=== PATIENT | female | born 1955 | race Caucasian/White ===

== ENCOUNTER 2016-10-22 09:55 | Emergency (ER) | payer OTHER ==
[2016-10-22] MEDS ORDERED: PREDNISONE 20 MG TABLET PO ONE (10:39)
[2016-10-22] MEDS ORDERED: ALBUTEROL SULFATE 0.083% NEB 2.5 MG/3 ML AMPUL NEB ONE (10:39)
[2016-10-22] MEDS ORDERED: IPRATROPIUM/ALBUTEROL 0.5-2.5 MG/3 ML AMPUL NEB ONE (10:39)
--- NOTE | 2016-10-22 10:40 | ER Document Report ---
ED Respiratory Problem - General Chief Complaint: Shortness Of Breath Stated Complaint: SHORTNESS OF BREATH Time Seen by Provider: 10/22/16 10:22 Mode of Arrival: Ambulatory Information source: Patient, [facility] Records Notes: This 61-year-old female patient reports one-week history of increasing shortness of breath with exertion some discomfort with deep breath, mostly clear productive cough. No fevers. She had similar episode in November last year where she is seen twice in the emergency room with bronchitis with bronchospasm. She used to be a heavy smoker, now only rarely smokes perhaps 1 cigarette weekly. She occasionally drinks alcohol. 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 TRAVEL OUTSIDE OF THE [place] IN LAST 30 DAYS: No - Related Data Allergies/Adverse Reactions: No Known Allergies Allergy (Verified 10/22/16 10:04) Past Medical History - General Information source: Patient, [facility] Records - Social History Smoking Status: Current Some Day Smoker Cigarette use (# per day): Yes - Patient reports smoking maybe 1 cigarette per week Chew tobacco use (# tins/day): No Smoking Education Provided: No Frequency of alcohol use: Occasional Drug Abuse: None Lives with: Family Family History: None, Reviewed & Not Pertinent Patient has suicidal ideation: No Patient has homicidal ideation: No - Past Medical History Cardiac Medical History: Reports: None Pulmonary Medical History: Reports: Hx Bronchitis - 2 ER visits for bronchitis with bronchospasm and suspected COPD in November Neurological Medical History: Reports: None Endocrine Medical History: Reports: None Renal/ Medical History: Reports: None GI Medical History: Reports: None Musculoskeltal Medical History: Reports None Psychiatric Medical History: Reports: None Surgical Hx: Negative Review of Systems - Review of Systems Constitutional: No symptoms reported EENT: No symptoms reported Cardiovascular: No symptoms reported Respiratory: See HPI, Cough, Short of breath, Sputum, Wheezing Gastrointestinal: No symptoms reported Genitourinary: No symptoms reported Female Genitourinary: Post menopausal Musculoskeletal: No symptoms reported Skin: No symptoms reported Hematologic/Lymphatic: No symptoms reported Neurological/Psychological: No symptoms reported Physical Exam - Vital signs Interpretation: Normal - General General appearance: Alert In distress: Mild - HEENT Head: Normocephalic, Atraumatic Eyes: Normal Pupils: PERRL Neck: Normal - Respiratory Respiratory status: Tachypnea Chest status: Pain with cough Breath sounds: Rhonchi, Wheezing - Diffuse tight inspiratory expiratory wheezes with some rhonchi on coughing - Cardiovascular Rhythm: Regular Heart sounds: Normal auscultation Murmur: No - Abdominal Inspection: Obese Bowel sounds: Normal Tenderness: Nontender - Back Back: Normal - Extremities General upper extremity: Normal inspection General lower extremity: Normal inspection - Neurological Neuro grossly intact: Yes - Psychological Associated symptoms: Normal affect, Normal mood - Skin Skin Temperature: Warm Skin Moisture: Dry Skin Color: Normal Course - Re-evaluation Re-evalutation: 10/22/16 12:49 Patient's breathing is much better at this time, wheezes or almost gone completely. Discharge - Discharge Clinical Impression: Acute bronchitis with bronchospasm Condition: Stable Disposition: HOME, SELF-CARE Additional Instructions: Bronchitis with Bronchospasm (Wheezing) You have bronchitis with bronchospasm (wheezing). Sometimes people develop wheezing with a chest cold. This occurs either because of an underlying tendency toward asthma or because the virus itself irritates the bronchial tubes. This irritation causes cough, shortness of breath, and wheezing. Emergency treatment of bronchospasm may include adrenaline shots or bronchodilator aerosol. You may feel lightheaded and have a rapid pulse for an hour or two. Rest and get plenty of fluids. At home, we'll treat you with a bronchodilator inhaler. Corticosteroids may be required for some patients. Until you recover, avoid chemical fumes, dusts, pollens, and exercising in very cold or dry air. If you smoke, stop now! Most cases of bronchitis get better without antibiotics. We prescribe antibiotics when we believe bacteria are damaging your airways, or if there's high risk the bronchitis will worsen into pneumonia. Increase your fluid intake. A cool mist humidifier may make your lungs more comfortable. An expectorant (cough medicine that loosens phlegm) can help. Repeated episodes of bronchitis and bronchospasm may result in lung damage -- for example, chronic bronchitis, recurrent pneumonias, or emphysema. If you develop a fever, increased wheezing, chest pain, or severe shortness of breath, you should contact the doctor immediately. START THE ZITHROMAX AND PREDNISONE TOMORROW. USE THE INHALER EVERY 4 HOURS FOR WHEEZING. DRINK PLENTY OF WATER. GET PLENTY OF REST. FOLLOW UP WITH A LOCAL MEDICAL DOCTOR IF NOT IMPROVING. RETURN TO THE EMERGENCY ROOM IF ANY NEW OR WORSENING SYMPTOMS. Prescriptions: Albuterol Sulfate [Proair HFA] 1 - 2 puff IH Q4 PRN #1 inhaler PRN Reason: Azithromycin [Zithromax 250 mg Tablet] 250 mg PO DAILY #4 tablet Prednisone [Deltasone 10 mg Tablet] 10 mg PO ASDIR PRN #21 tablet PRN Reason: Forms: Return to Work
[2016-10-22] MEDS ORDERED: AZITHROMYCIN 250 MG TABLET PO ONE (10:41)
[2016-10-22 13:11] VITALS: BP 215/87
== END 2016-10-22 13:08 | disposition home or self-care (01) ==
LOC: ER 09:55
DX: J20.9 Acute bronchitis, unspecified (principal); R06.02 Shortness of breath; R05 Cough; F17.210 Nicotine dependence, cigarettes, uncomplicated
CPT/HCPCS: 94640 ×2; 99284; J7512; J7620

== ENCOUNTER 2016-12-10 20:44 | Emergency (ER) | payer OTHER ==
[2016-12-10] MEDS ORDERED: ALBUTEROL SULFATE 0.083% NEB 2.5 MG/3 ML AMPUL NEB ONE (21:38)
--- NOTE | 2016-12-10 21:42 | ER Document Report ---
ED General - General Chief Complaint: Breathing Difficulty Stated Complaint: DIFFICULTY BREATHING Time Seen by Provider: 12/10/16 21:27 Notes: 61-year-old female patient. No past medical history. No medications. No surgeries. No recent long trips or travel. Does smoke on occasions. Complaining of shortness of breath over the last month which is getting worse. Worse when she lies flat. Also complaining of swelling of the left ankle. Mild pain. Denies any trauma. TRAVEL OUTSIDE OF THE [place] IN LAST 30 DAYS: No - Related Data Allergies/Adverse Reactions: No Known Allergies Allergy (Verified 10/22/16 10:04) Past Medical History - General Information source: Patient - Social History Smoking Status: Current Every Day Smoker Lives with: Alone Family History: None, Reviewed & Not Pertinent Patient has suicidal ideation: No Patient has homicidal ideation: No Pulmonary Medical History: Reports: Hx Bronchitis - 2 ER visits for bronchitis with bronchospasm and suspected COPD in November Renal/ Medical History: Denies: Hx Peritoneal Dialysis Review of Systems - Review of Systems Constitutional: No symptoms reported EENT: No symptoms reported Cardiovascular: No symptoms reported, Orthopnea, Edema Respiratory: No symptoms reported, Cough, Short of breath, Wheezing Gastrointestinal: No symptoms reported Genitourinary: No symptoms reported Female Genitourinary: No symptoms reported Musculoskeletal: No symptoms reported, Ankle swelling Skin: No symptoms reported Hematologic/Lymphatic: No symptoms reported Neurological/Psychological: No symptoms reported Physical Exam - Vital signs Vitals: Temp Pulse Resp BP Pulse Ox 98.7 F 89 20 207/111 H 95 12/10/16 20:52 12/10/16 20:52 12/10/16 20:52 12/10/16 20:52 12/10/16 20:52 Interpretation: Normal - General General appearance: Appears well, Alert - HEENT Head: Normocephalic, Atraumatic Eyes: Normal Pupils: PERRL - Respiratory Respiratory status: No respiratory distress Chest status: Nontender Breath sounds: Normal, Decreased air movement, Wheezing Chest palpation: Normal - Cardiovascular Rhythm: Regular Heart sounds: Normal auscultation Murmur: No - Abdominal Inspection: Normal Distension: No distension Bowel sounds: Normal Tenderness: Nontender Organomegaly: No organomegaly - Back Back: Normal, Nontender - Extremities General upper extremity: Normal inspection, Nontender, Normal color, Normal ROM , Normal temperature General lower extremity: Normal inspection, Nontender, Edema - Trace edema noted to the left ankle mostly on the lateral aspect, Normal color, Normal ROM, Normal temperature, Normal weight bearing. No: Zoe's sign - Neurological Neuro grossly intact: Yes Cognition: Normal Orientation: AAOx4 Zo Coma Scale Eye Opening: Spontaneous [place] Coma Scale Verbal: Oriented Zo Coma Scale Motor: Obeys Commands Zo Coma Scale Total: 15 Speech: Normal Motor strength normal: LUE, RUE, LLE, RLE Sensory: Normal - Psychological Associated symptoms: Normal affect, Normal mood - Skin Skin Temperature: Warm Skin Moisture: Dry Skin Color: Normal Course - Re-evaluation Re-evalutation: 12/10/16 21:59 We will get cardiac workup. Will also order d-dimer to assess for possible DVT which could be causing the respiratory issues if this is a pulmonary embolism from that. It is interesting the patient denies any trauma and has unilateral leg swelling. Will start with a breathing treatment at this time as well. Unlikely this represents a bronchitis but would like to check the other concerning things such as pulmonary embolism and cardiac issues. 12/10/16 23:06 Chest X-Ray 12/10/16 21:38 IMPRESSION: NO SIGNIFICANT RADIOGRAPHIC FINDING IN THE CHEST. Ankle X-Ray 12/10/16 21:40 IMPRESSION: NO SIGNIFICANT FINDING IN THE LEFT ANKLE. NO EXPLANATION FOR PAIN. 12/10/16 23:06 There is no obvious issues with her heart at this time. Negative troponin. Negative BNP. Chest x-ray unremarkable. Wheezing is improved after breathing treatment. Patient is a smoker. Will give her treatment as a COPD exacerbation with breathing treatments, steroids, antibiotics. Encourage close follow-up. - Vital Signs Vital signs: Temp Pulse Resp BP Pulse Ox 98.7 F 89 13 207/111 H 95 12/10/16 20:52 12/10/16 20:52 12/10/16 21:28 12/10/16 20:52 12/10/16 20:52 - Laboratory Result Diagrams: 12/10/16 22:00 12/10/16 22:00 Laboratory results interpreted by me: 12/10/16 22:00 Sodium 145.8 H Alkaline Phosphatase 138 H Total Protein 8.3 H - Diagnostic Test Radiology reviewed: Image reviewed - EKG Interpretation by Me EKG shows normal: Sinus rhythm, [place], Intervals, QRS Complexes, ST-T Waves - No significant change from prior Discharge - Discharge Clinical Impression: Bronchitis Condition: Good Disposition: HOME, SELF-CARE Instructions: Bronchitis ([facility]), Bronchodilators ([facility]) Additional Instructions: If you develop chest pain, worsening shortness of breath, worsening concerns please return immediately. Please follow-up with your primary care provider of your choice Prescriptions: Azithromycin 250 mg PO DAILY 7 Days #7 tablet Ipratropium/Albuterol Sulfate [Combivent Inhaler] 14.7 gm IH BID 30 Days #1 aer.[email or web address] Prednisone 60 mg PO DAILY 5 Days #15 tablet Referrals: ELIF GAR MD [ACTIVE STAFF] - Follow up as needed
[2016-12-10 22:17] LABS: ABSOLUTE BASOPHILS # (AUTO) 0.1 10^3/uL (0.0-0.2); ABSOLUTE EOSINOPHILS # (AUTO) 0.3 10^3/uL (0.0-0.6); ABSOLUTE LYMPHOCYTES (AUTO) 1.8 10^3/uL (0.5-4.7); ABSOLUTE MONOCYTES (AUTO) 0.6 10^3/uL (0.1-1.4); ABSOLUTE NEUT (AUTO) 5.7 10^3/uL (1.7-8.2); BASOPHILS % (AUTO) 0.7 % (0-2); EOSINOPHILS % (AUTO) 3.9 % (0-6); HEMATOCRIT 44.3 % (36.0-47.0); HEMOGLOBIN 14.9 g/dL (12.0-15.5); HGB HCT DIFFERENCE 0.4; LYMPHOCYTES % (AUTO) 21.3 % (13-45); MEAN CORPUSCULAR HEMOGLOBIN 29.6 pg (27.0-33.4); MEAN CORPUSCULAR HGB CONC 33.7 g/dL (32.0-36.0); MEAN CORPUSCULAR VOLUME 88 fl (80-97); MONOCYTES % (AUTO) 6.6 % (3-13); RED BLOOD COUNT 5.03 10^6/uL (3.72-5.28); RED CELL DISTRIBUTION WIDTH 13.8 % (11.5-14.0); SEGMENTED NEUTROPHILS % (AUTO) 67.5 % (42-78); WHITE BLOOD COUNT 8.4 10^3/uL (4.0-10.5)
--- NOTE | 2016-12-10 22:32 | RADIOLOGY REPORT (SQ) ---
EXAM DESCRIPTION: CHEST PA/LAT COMPLETED DATE/TIME: 12/10/2016 10:22 pm REASON FOR STUDY: sob COMPARISON: 12/07/2015. EXAM PARAMETERS: NUMBER OF VIEWS: two views TECHNIQUE: Digital Frontal and Lateral radiographic views of the chest acquired. RADIATION DOSE: NA LIMITATIONS: none FINDINGS: LUNGS AND PLEURA: No opacities, masses or pneumothorax. No pleural effusion. MEDIASTINUM AND HILAR STRUCTURES: No masses or contour abnormalities. HEART AND VASCULAR STRUCTURES: Heart normal size. No evidence for failure. BONES: No acute findings. HARDWARE: None in the chest. OTHER: No other significant finding. IMPRESSION: NO SIGNIFICANT RADIOGRAPHIC FINDING IN THE CHEST. TECHNICAL DOCUMENTATION: JOB ID: [id number] [employer]- All Rights Reserved
--- NOTE | 2016-12-10 22:35 | RADIOLOGY REPORT (SQ) ---
EXAM DESCRIPTION: ANKLE LEFT COMPLETE COMPLETED DATE/TIME: 12/10/2016 10:22 pm REASON FOR STUDY: swelling COMPARISON: None. NUMBER OF VIEWS: Three views. TECHNIQUE: AP, lateral, and oblique without weight bearing radiographic images acquired of the left ankle. LIMITATIONS: None. FINDINGS: MINERALIZATION: Normal. BONES: No acute fracture or dislocation. No worrisome bone lesions. No significant osteophytes. JOINTS: No effusions. SOFT TISSUES: No soft tissue swelling. No foreign body. OTHER: No other significant finding. IMPRESSION: NO SIGNIFICANT FINDING IN THE LEFT ANKLE. NO EXPLANATION FOR PAIN. TECHNICAL DOCUMENTATION: JOB ID: [id number] [employer]- All Rights Reserved
[2016-12-10 22:45] LABS: ALANINE AMINOTRANSFERASE 23 U/L (9-52); ALBUMIN 4.5 g/dL (3.5-5.0); ALKALINE PHOSPHATASE 138 U/L (38-126); ANION GAP 14 (5-19); ASPARTATE AMINO TRANSFERASE 18 U/L (14-36); BILIRUBIN,DIRECT 0.3 mg/dL (0.0-0.4); BILIRUBIN,TOTAL 0.5 mg/dL (0.2-1.3); BLOOD UREA NITROGEN 13 mg/dL (7-20); CARBON DIOXIDE 28 mmol/L (22-30); CHLORIDE 104 mmol/L (98-107); CREATINE KINASE 37 U/L (30-135); CREATININE RESULT 0.84 mg/dL (0.52-1.25); GLUCOSE 108 mg/dL (75-110); POTASSIUM 4.3 mmol/L (3.6-5.0); SODIUM 145.8 mmol/L (137-145); TOTAL PROTEIN 8.3 g/dL (6.3-8.2)
[2016-12-10 22:57] LABS: CREATINE KINASE MB 0.86 ng/mL (<4.55); TROPONIN I < 0.012 ng/mL
[2016-12-10] MEDS ORDERED: IPRATROPIUM/ALBUTEROL 0.5-2.5 MG/3 ML AMPUL NEB ONE (23:05)
[2016-12-10] MEDS ORDERED: AZITHROMYCIN 250 MG TABLET PO ONE (23:05)
[2016-12-10] MEDS ORDERED: PREDNISONE 20 MG TABLET PO ONE (23:05)
[2016-12-10] MEDS ORDERED: ALBUTEROL SULFATE HFA (90 MCG/PUFF) 200 PUFF/8.5 GM MDI IH ONE (23:24)
[2016-12-10 23:49] VITALS: BP 168/84
--- NOTE | 2016-12-11 10:39 | EKG REPORT ---
SEVERITY:- ABNORMAL ECG - SINUS RHYTHM LVH BORDERLINE PROLONGED QT INTERVAL : Confirmed by: Duran Christianson 11-Dec-2016 10:38:49
== END 2016-12-10 23:20 | disposition home or self-care (01) ==
LOC: ER 20:44
DX: J40 Bronchitis, not specified as acute or chronic (principal); F17.200 Nicotine dependence, unspecified, uncomplicated
CPT/HCPCS: 93005; 94640; 99285; 36415; 82553; 82550; 85025; 80053; 84484; 85379; 83880; 73610; 71020; 93010; J7512; J3490

== ENCOUNTER 2016-12-30 17:38 | Inpatient (IN) | payer OTHER ==
[2016-12-30] MEDS ORDERED: IPRATROPIUM/ALBUTEROL 0.5-2.5 MG/3 ML AMPUL NEB ONE ×2 (17:51→17:57)
[2016-12-30] MEDS ORDERED: ALBUTEROL SULFATE 0.083% NEB 2.5 MG/3 ML AMPUL NEB ONE ×2 (17:52→17:57)
[2016-12-30] MEDS ORDERED: MAGNESIUM SULFATE/D5W 2 GM/200 ML RTUPB IV ONE (17:52)
[2016-12-30] MEDS ORDERED: MAGNESIUM SULFATE/D5W 1 GM/100 ML RTUPB IV SCH (18:00)
[2016-12-30 18:03] LABS: ABSOLUTE EOSINOPHILS # (AUTO) 0.1 10^3/uL (0.0-0.6); ABSOLUTE NEUT (AUTO) 13.9 10^3/uL (1.7-8.2); BASOPHILS % (AUTO) 0.3 % (0-2); EOSINOPHILS % (AUTO) 0.6 % (0-6); HEMATOCRIT 41.6 % (36.0-47.0); HEMOGLOBIN 13.8 g/dL (12.0-15.5); HGB HCT DIFFERENCE -0.2; LYMPHOCYTES % (AUTO) 6.2 % (13-45); MEAN CORPUSCULAR HEMOGLOBIN 29.2 pg (27.0-33.4); MEAN CORPUSCULAR HGB CONC 33.2 g/dL (32.0-36.0); MEAN CORPUSCULAR VOLUME 88 fl (80-97); MONOCYTES % (AUTO) 6.5 % (3-13); RED BLOOD COUNT 4.72 10^6/uL (3.72-5.28); RED CELL DISTRIBUTION WIDTH 13.8 % (11.5-14.0); SEGMENTED NEUTROPHILS % (AUTO) 86.4 % (42-78); WHITE BLOOD COUNT 16.1 10^3/uL (4.0-10.5)
[2016-12-30 18:28] LABS: ALANINE AMINOTRANSFERASE 21 U/L (9-52); ALBUMIN 4.4 g/dL (3.5-5.0); ALKALINE PHOSPHATASE 136 U/L (38-126); ANION GAP 12 (5-19); ASPARTATE AMINO TRANSFERASE 20 U/L (14-36); BILIRUBIN,DIRECT 0.4 mg/dL (0.0-0.4); BILIRUBIN,TOTAL 0.4 mg/dL (0.2-1.3); BLOOD UREA NITROGEN 14 mg/dL (7-20); CARBON DIOXIDE 31 mmol/L (22-30); CHLORIDE 103 mmol/L (98-107); CREATINE KINASE 90 U/L (30-135); CREATININE RESULT 0.74 mg/dL (0.52-1.25); GLUCOSE 135 mg/dL (75-110); POTASSIUM 3.5 mmol/L (3.6-5.0); SODIUM 145.7 mmol/L (137-145); TOTAL PROTEIN 8.9 g/dL (6.3-8.2)
--- NOTE | 2016-12-30 18:29 | ER Document Report ---
ED Respiratory Problem - General Chief Complaint: Breathing Difficulty Stated Complaint: SHORTNESS OF BREATH Time Seen by Provider: 12/30/16 17:46 Notes: The patient is a 61-year-old female, past medical history frequent bronchitis, prior heavy smoker, presents with 1 day of increased wheezing and shortness of breath. She finished a course of steroids and antibiotics last week with some improvement of her wheezing and shortness of breath. She began to have the wheezing this morning and used her albuterol inhaler about 10 times with only mild relief of her symptoms. EMS was called and patient was placed on CPAP machine due to tripoding and diffuse wheezing. She was given 2 duo nebs and 125 mg Solu-Medrol prior to arrival and she feels better. Patient is also having productive cough today. Patient denies chest pain, fevers, leg swelling , nausea, vomiting, rash, hemoptysis, recent travel, back pain, abdominal pain or headache. TRAVEL OUTSIDE OF THE [place] IN LAST 30 DAYS: No - Related Data Allergies/Adverse Reactions: No Known Allergies Allergy (Verified 12/30/16 18:09) Home Medications: Current Home Medications No Home Medications 12/30/16 [History] Past Medical History - General Information source: Patient - Social History Smoking Status: Former Smoker Family History: None, Reviewed & Not Pertinent Pulmonary Medical History: Reports: Hx Bronchitis - 2 ER visits for bronchitis with bronchospasm and suspected COPD in November Renal/ Medical History: Denies: Hx Peritoneal Dialysis Review of Systems - Review of Systems Notes: REVIEW OF SYSTEMS: CONSTITUTIONAL: -fevers, -chills EENT: -eye pain, -difficulty swallowing, -nasal congestion CARDIOVASCULAR: -chest pain, -syncope. RESPIRATORY: +cough, +SOB GASTROINTESTINAL: -abdominal pain, - nausea, -vomiting, -diarrhea GENITOURINARY: -dysuria, -hematuria MUSCULOSKELETAL: -back pain, -neck pain SKIN: -rash or skin lesions. HEMATOLOGIC: -easy bruising or bleeding. LYMPHATIC: -swollen, enlarged glands. NEUROLOGICAL: -altered mental status or loss of consciousness, -headache, - neurologic symptoms PSYCHIATRIC: -anxiety, -depression. ALL OTHER SYSTEMS REVIEWED AND NEGATIVE. Physical Exam - Vital signs Vitals: Resp Pulse Ox 28 H 95 12/30/16 17:45 12/30/16 17:45 - Notes Notes: PHYSICAL EXAMINATION: GENERAL: In moderate respiratory distress. HEAD: Atraumatic, normocephalic. EYES: Pupils equal round and reactive to light, extraocular movements intact, sclera anicteric, conjunctiva are normal. ENT: nares patent, oropharynx clear without exudates. Moist mucous membranes. NECK: Normal range of motion, supple without lymphadenopathy LUNGS: Tachypneic, diffuse auditory wheezing, tripoding, using accessory muscles. HEART: Regular rhythm. ABDOMEN: Soft, nontender, normoactive bowel sounds. No guarding, no rebound. No masses appreciated. EXTREMITIES: Normal range of motion, no pitting or edema. No cyanosis. NEUROLOGICAL: Cranial nerves grossly intact. Normal speech, normal gait. Normal sensory and motor exams. PSYCH: Normal mood, normal affect. SKIN: Warm, Dry, normal turgor, no rashes or lesions noted. Course - Re-evaluation Re-evalutation: Patient seen immediately on arrival to the emergency room due to respiratory distress. She was transitioned to BiPAP and further beta agonists and magnesium were provided to patient due to the auditory wheezing and respiratory distress. She is resting comfortably on BiPAP machine and after her medications. We will continue to monitor. Patient continues to rest comfortably on BiPAP. Spoke to Dr. Banks and will admit patient as inpatient to IMCU. - Vital Signs Vital signs: Temp Pulse Resp BP Pulse Ox 98.0 F 18 167/115 H 92 12/30/16 17:54 12/30/16 20:01 12/30/16 20:01 12/30/16 20:01 - Laboratory Result Diagrams: 12/30/16 17:49 12/30/16 17:49 Laboratory results interpreted by me: 12/30/16 12/30/16 12/30/16 17:49 17:49 17:49 WBC 16.1 H Seg Neutrophils % 86.4 H Lymphocytes % 6.2 L Absolute Neutrophils 13.9 H VBG pH VBG pCO2 Sodium 145.7 H Potassium 3.5 L Carbon Dioxide 31 H Glucose 135 H Lactic Acid 2.3 H Alkaline Phosphatase 136 H Total Protein 8.9 H 12/30/16 17:49 WBC Seg Neutrophils % Lymphocytes % Absolute Neutrophils VBG pH 7.29 L VBG pCO2 63.8 H Sodium Potassium Carbon Dioxide Glucose Lactic Acid Alkaline Phosphatase Total Protein - Diagnostic Test Radiology reviewed: Image reviewed, Reports reviewed Radiology results interpreted by me: CXR: NAD - EKG Interpretation by Me EKG shows normal: Sinus rhythm, [place], Intervals, QRS Complexes, ST-T Waves Rate: Tachycardia Critical Care Note - Critical Care Note Total time excluding time spent on procedures (mins): 35 Discharge - Discharge Clinical Impression: COPD with exacerbation Condition: Stable Disposition: ADMITTED INPATIENT Admitting Provider: Marlyist [facility] Unit Admitted: [facility]
[2016-12-30 18:42] LABS: TROPONIN I 0.035 ng/mL
--- NOTE | 2016-12-30 18:48 | RADIOLOGY REPORT (SQ) ---
EXAM DESCRIPTION: CHEST SINGLE VIEW COMPLETED DATE/TIME: 12/30/2016 6:38 pm REASON FOR STUDY: SOB COMPARISON: 12/10/2016 EXAM PARAMETERS: NUMBER OF VIEWS: One view. TECHNIQUE: Single frontal radiographic view of the chest acquired. RADIATION DOSE: NA LIMITATIONS: None. FINDINGS: LUNGS AND PLEURA: No opacities, masses or pneumothorax. No pleural effusion. MEDIASTINUM AND HILAR STRUCTURES: No masses. Contour normal. HEART AND VASCULAR STRUCTURES: Heart normal in size. Normal vasculature. BONES: No acute findings. HARDWARE: None in the chest. OTHER: No other significant finding. IMPRESSION: NO ACUTE RADIOGRAPHIC FINDING IN THE CHEST. TECHNICAL DOCUMENTATION: JOB ID: [id number] [employer]- All Rights Reserved
[2016-12-30 20:29] LABS: VENOUS BLOOD BASE EXCESS 1.5 mmol/L; VENOUS BLOOD HCO3 29.9 mmol/L (20-32); VENOUS BLOOD PCO2 63.8 mmHg (35-63); VENOUS BLOOD PH 7.29 (7.30-7.42)
[2016-12-30] MEDS ORDERED: LEVALBUTEROL HCL NEB 1.25 MG/3 ML AMPUL NEB PRN (21:22)
[2016-12-30] MEDS ORDERED: HYDRALAZINE HCL INJ/PF 20 MG/1 ML SDV IV PRN (21:23)
[2016-12-30] MEDS ORDERED: ACETAMINOPHEN 325 MG TABLET PO PRN (21:24)
[2016-12-30] MEDS ORDERED: GUAIFENESIN SYRP 200 MG/10 ML UDC PO PRN (21:42)
[2016-12-30 22:38] LABS: VENOUS BLOOD HCO3 29.3 mmol/L (20-32); VENOUS BLOOD PCO2 46.4 mmHg (35-63); VENOUS BLOOD PH 7.42 (7.30-7.42)
[2016-12-30] MEDS: NORMAL SALINE 1000 ML 1,000 ML IV PRN (22:50)
[2016-12-30] MEDS: CEFTRIAXONE 1 GM/D5W RTU 1 GM/50 ML RTUPB IV SCH (22:50)
[2016-12-30] MEDS: AZITHROMYCIN 250 MG TABLET PO SCH (22:50)
[2016-12-30] MEDS: GUAIFENESIN 600 MG TABLET.SA PO SCH (22:50)
--- NOTE | 2016-12-31 00:10 | EKG REPORT ---
SEVERITY:- BORDERLINE ECG - SINUS RHYTHM BORDERLINE PROLONGED QT INTERVAL : Confirmed by: Duran Christianson 31-Dec-2016 00:10:05
--- NOTE | 2016-12-31 00:13 | EKG REPORT ---
SEVERITY:- BORDERLINE ECG - SINUS TACHYCARDIA VENTRICULAR PREMATURE COMPLEX LVH : Confirmed by: Duran Christianson 31-Dec-2016 00:12:22
[2016-12-31] MEDS ORDERED: INFLUENZA ADLT QUAD (36MOS+) 2017-18 VAC 0.5 ML SYR IM PRN (00:35)
[2016-12-31] MEDS ORDERED: ENOXAPARIN SODIUM INJ 40 MG/0.4 ML DISP.SYRIN SUBCUT ONE (01:00)
[2016-12-31] MEDS ORDERED: ASPIRIN 81 MG TABLET, CHEWABLE PO ONE (01:00)
[2016-12-31] MEDS: METHYLPREDNISOLONE INJ 125 MG/2 ML SDV IV SCH ×5 (01:08→23:59)
[2016-12-31] MEDS ORDERED: POTASSIUM CHLORIDE 10 MEQ TABLET.SA PO ONE (01:22)
[2016-12-31 01:31] LABS: VENOUS BLOOD BASE EXCESS 3.7 mmol/L; VENOUS BLOOD HCO3 31.2 mmol/L (20-32); VENOUS BLOOD PCO2 59.8 mmHg (35-63); VENOUS BLOOD PH 7.34 (7.30-7.42)
[2016-12-31] MEDS ORDERED: ATORVASTATIN CALCIUM 40 MG TABLET PO ONE (01:41)
--- NOTE | 2016-12-31 01:43 | PDOC H&P ---
History of Present Illness Admission Date/PCP: 12/30/16 21:19 No PCP History of Present Illness: ROMÁN LOMAS is a 61 year old female with no past medical history presents to the emergency department with shortness of breath. Patient reports approximately 4 days ago she developed a sinus drip but then began giving her a sore throat. She reports for that she used a home remedy of eating pickles. She reports that over the last 36 hours she has had increasing shortness of breath, lower extremity edema, orthopnea, dyspnea on exertion, fevers, subjective chills, and sputum productive of white clear sputum. She denies any chest pain during this time. Patient reports has been almost 5 years since she has been to the doctor. Patient however has been seen in the emergency department October or November and now December for shortness of breath. Most recently, patient was seen on 12/10/2016 patient was given prednisone, azithromycin, and Combivent inhaler. Patient would have completed steroids on 12/16/16. Patient does continue to smoke about 5 cigarettes a day on occasion. She reports that she quit smoking the bulk of this approximately a year ago. Currently, patient has received Solu-Medrol, magnesium sulfate, and currently requiring BiPAP. Patient was found to be hypoxic on presentation with an oxygen saturation in the 80s. She is referred to the hospitalist service for COPD exacerbation and acute hypoxemic respiratory failure. Past Medical History Pulmonary Medical History: Reports: Bronchitis - 2 ER visits for bronchitis with bronchospasm and suspected COPD in November, Chronic Obstructive Pulmonary Disease (COPD) Past Surgical History Past Surgical History: Reports: None Social History Smoking Status: Current Some Day Smoker Cigarettes Packs Per Day: 0.2 Last Time Smoked: 1 yr ago Frequency of Alcohol Use: None Hx Recreational Drug Use: No Hx Prescription Drug Abuse: No - Advance Directive Resuscitation Status: Full Code Surrogate healthcare decision maker:: Dhruv Lomas, edie Family History Family History: None Family History: Father of old age, mother after hip surgery Parental Family History Reviewed: Yes Children Family History Reviewed: Yes Sibling(s) Family History Reviewed.: Yes Medication/Allergy Home Medications: No Home Medications 12/30/16 Allergies/Adverse Reactions: No Known Allergies Allergy (Verified 12/30/16 18:09) Review of Systems Constitutional: PRESENT: chills, fever(s). ABSENT: headache(s), weight gain, weight loss Eyes: ABSENT: visual disturbances Ears: ABSENT: hearing changes Cardiovascular: PRESENT: dyspnea on exertion, edema - Left ankle, orthropnea. ABSENT: chest pain, palpitations Respiratory: PRESENT: cough, dyspnea, sputum. ABSENT: hemoptysis Gastrointestinal: ABSENT: abdominal pain, constipation, diarrhea, hematemesis, hematochezia, melena, nausea, vomiting Genitourinary: ABSENT: dysuria, hematuria Musculoskeletal: ABSENT: joint swelling Integumentary: ABSENT: rash, wounds Neurological: ABSENT: abnormal gait, abnormal speech, confusion, dizziness, focal weakness, syncope Psychiatric: ABSENT: anxiety, depression, homidical ideation, suicidal ideation Endocrine: ABSENT: cold intolerance, heat intolerance, polydipsia, polyuria Hematologic/Lymphatic: ABSENT: easy bleeding, easy bruising Physical Exam Vital Signs: Temp Pulse Resp BP Pulse Ox 97.9 F 85 28 H 150/79 H 94 12/31/16 00:10 12/31/16 00:10 12/31/16 00:10 12/31/16 00:10 12/31/16 00:33 General appearance: PRESENT: obese, well-developed, well-nourished, other - Moderate distress Head exam: PRESENT: atraumatic, normocephalic Eye exam: PRESENT: conjunctiva pink, EOMI, PERRLA. ABSENT: scleral icterus Ear exam: PRESENT: normal external ear exam Mouth exam: PRESENT: dry mucosa, tongue midline Neck exam: ABSENT: JVD, lymphadenopathy, thyromegaly, tracheal deviation Respiratory exam: PRESENT: clear to auscultation marcio, prolonged expiratory phas , symmetrical, tachypnea, unlabored, wheezes. ABSENT: accessory muscle use, crackles, rales, retraction, rhonchi Cardiovascular exam: PRESENT: RRR, +S1, +S2, tachycardia. ABSENT: diastolic murmur, gallop, rubs, systolic murmur Pulses: PRESENT: normal dorsalis pedis pul Vascular exam: PRESENT: normal capillary refill GI/Abdominal exam: PRESENT: normal bowel sounds, soft. ABSENT: distended, firm , guarding, mass, Chadwick's sign, organolmegaly, rebound, rigid, tenderness Rectal exam: PRESENT: deferred Extremities exam: PRESENT: full ROM. ABSENT: calf tenderness, clubbing, pedal edema Neurological exam: PRESENT: alert, awake, oriented to person, oriented to place , oriented to time, oriented to situation, CN II-XII grossly intact. ABSENT: motor sensory deficit Psychiatric exam: PRESENT: appropriate affect, normal mood. ABSENT: homicidal ideation, suicidal ideation Skin exam: PRESENT: dry, intact, warm. ABSENT: cyanosis, rash Results Laboratory Results: 12/30/16 12/30/16 22:22 23:58 VBG pH 7.42 VBG pCO2 46.4 VBG HCO3 29.3 VBG Base Excess 4.0 Lactic Acid 1.9 12/30/16 23:58 Troponin I 0.499 12/10/16 12/30/16 12/30/16 22:00 17:49 17:49 WBC 16.1 H Hgb 13.8 Hct 41.6 Plt Count 277 Seg Neutrophils % 86.4 H D-Dimer < 0.27 VBG pH VBG pCO2 VBG HCO3 Sodium 145.7 H Potassium 3.5 L Chloride 103 Carbon Dioxide 31 H Anion Gap 12 BUN 14 Creatinine 0.74 Glucose 135 H Calcium 10.0 Total Bilirubin 0.4 Direct Bilirubin 0.4 AST 20 ALT 21 Alkaline Phosphatase 136 H Creatine Kinase 90 Troponin I NT-Pro-B Natriuret Pep Total Protein 8.9 H Albumin 4.4 12/30/16 12/30/16 17:49 17:49 WBC Hgb Hct Plt Count Seg Neutrophils % D-Dimer VBG pH 7.29 L VBG pCO2 63.8 H VBG HCO3 29.9 Sodium Potassium Chloride Carbon Dioxide Anion Gap BUN Creatinine Glucose Calcium Total Bilirubin Direct Bilirubin AST ALT Alkaline Phosphatase Creatine Kinase Troponin I 0.035 NT-Pro-B Natriuret Pep 324 Total Protein Albumin 12/30/16 12/30/16 20:25 23:58 Troponin I 0.288 0.499 Impressions: Chest X-Ray 12/30/16 17:55 IMPRESSION: NO ACUTE RADIOGRAPHIC FINDING IN THE CHEST. Status: Imported from PACS Assessment & Plan - Diagnosis (1) COPD with exacerbation Is this a current diagnosis for this admission?: Yes Plan: Patient with acute COPD exacerbation. Placed on Solu-Medrol 125 IV q. 6, scheduled nebulized treatments, as needed Xopenex, and continue BiPAP. Obtain sputum culture with concerns for possible pneumonia in light of reported fevers , chill, and sputum production. Patient also has elevated white count with left shift. Again, her steroid should have been already used by this time. (2) Acute hypoxemic respiratory failure Is this a current diagnosis for this admission?: Yes Plan: Continue BiPAP secondary to underlying COPD exacerbation (3) Hypertension Qualifiers: Hypertension type: unspecified Qualified Code(s): I10 - Essential (primary ) hypertension Is this a current diagnosis for this admission?: Yes Plan: Place patient on lisinopril and metoprolol. (4) Elevated troponin Is this a current diagnosis for this admission?: Yes Plan: Feel this is likely secondary to patient's hypoxemia. Her lactate was elevated , and she was hypoxic to the 80s when EMS arrived. Have ordered cardiology consultation, echocardiogram, and continue to plot out her troponins. EKG reveals no changes. No ST segment depression or elevation. It does reveal LVH however. Place patient on aspirin, lisinopril, metoprolol, and Lipitor. Oxygen. (5) Obesity (BMI 30.0-34.9) Is this a current diagnosis for this admission?: Yes Plan: Encourage weight loss and follow-up with her primary care physician - Time Time Spent: 30 to 50 Minutes Medications reviewed and adjusted accordingly: Yes Anticipated discharge: Home Within: Other - Upon improvement of symptomatology - Inpatient Certification Based on my medical assessment, after consideration of the patient's comorbidities, presenting symptoms, or acuity I expect that the services needed warrant INPATIENT care.: Yes I certify that my determination is in accordance with my understanding of Medicare's requirements for reasonable and necessary INPATIENT services [42 CFR 412.3e].: Yes Medical Necessity: Need For IV Fluids, Need For Continuous Telemetry Monitoring , Need for Nebulizer Therapy and Monitoring of Response, Need for IV Antibiotics 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
[2016-12-31] MEDS ORDERED: METOPROLOL SUCCINATE 25 MG TAB.SR.24H PO ONE (01:45)
[2016-12-31] MEDS ORDERED: LISINOPRIL 10 MG TABLET PO ONE (01:45)
[2016-12-31] MEDS: IPRATROPIUM/ALBUTEROL 0.5-2.5 MG/3 ML AMPUL NEB SCH ×4 (02:23→19:59)
[2016-12-31 06:55] LABS: HEMOGLOBIN 13.2 g/dL (12.0-15.5); HGB HCT DIFFERENCE 0.6; MEAN CORPUSCULAR HEMOGLOBIN 29.9 pg (27.0-33.4); MEAN CORPUSCULAR HGB CONC 33.7 g/dL (32.0-36.0); MEAN CORPUSCULAR VOLUME 89 fl (80-97); RED BLOOD COUNT 4.41 10^6/uL (3.72-5.28); RED CELL DISTRIBUTION WIDTH 13.9 % (11.5-14.0); WHITE BLOOD COUNT 10.9 10^3/uL (4.0-10.5)
[2016-12-31 07:00] LABS: ANION GAP 13 (5-19); BLOOD UREA NITROGEN 17 mg/dL (7-20); CALCIUM 9.6 mg/dL (8.4-10.2); CARBON DIOXIDE 29 mmol/L (22-30); CHLORIDE 105 mmol/L (98-107); CREATININE RESULT 0.63 mg/dL (0.52-1.25); GLUCOSE 146 mg/dL (75-110); MAGNESIUM 2.3 mg/dL (1.6-2.3); POTASSIUM 4.2 mmol/L (3.6-5.0); SODIUM 146.8 mmol/L (137-145)
[2016-12-31 07:06] LABS: APPEARANCE,URINE SLIGHTLY-CLOUDY; BILIRUBIN,URINE NEGATIVE (NEGATIVE); GLUCOSE, URINE NEGATIVE (NEGATIVE); KETONES,URINE NEGATIVE (NEGATIVE); LEUKOCYTE ESTERASE,URINE NEGATIVE (NEGATIVE); NITRITE,URINE NEGATIVE (NEGATIVE); PROTEIN,URINE 30 mg/dL (NEGATIVE); URINE SPECIFIC GRAVITY 1.026; UROBILINOGEN,URINE NEGATIVE mg/dL (<2.0)
[2016-12-31 07:23] LABS: BASOPHILS % (MANUAL) 1 % (0-2); EOSINOPHILS % (MANUAL) 0 % (0-6); HYPOCHROMASIA SLIGHT; LYMPHOCYTES % (MANUAL) 2 % (13-45); PLATELET CLUMPS PRESENT; TOTAL CELLS COUNTED 100
[2016-12-31] MEDS: TIOTROPIUM BROMIDE DPI 5 CAP/KIT (18 MCG/CAP) IH SCH (09:46)
[2016-12-31] MEDS: FLUTICASONE NASAL SPRAY 50 MCG/SPRY 120 SPRAY/16 GM NASL SCH (09:46)
[2016-12-31] MEDS: GUAIFENESIN 600 MG TABLET.SA PO SCH ×2 (09:47→21:54)
[2016-12-31] MEDS: ASPIRIN 325 MG TABLET, ENT COATED PO SCH (09:48)
[2016-12-31] MEDS: LISINOPRIL 10 MG TABLET PO SCH ×2 (09:49→21:55)
[2016-12-31] MEDS: METOPROLOL SUCCINATE 25 MG TAB.SR.24H PO SCH ×2 (09:49→21:53)
[2016-12-31] MEDS ORDERED: AZITHROMYCIN 500 MG in DEXTROSE 5%-WATER 250 ML IV SCH (10:00)
[2016-12-31] MEDS: NORMAL SALINE 1000 ML 1,000 ML IV PRN ×2 (11:36→18:54)
--- NOTE | 2016-12-31 11:42 | RADIOLOGY REPORT (SQ) ---
EXAM DESCRIPTION: CTA CHEST COMPLETED DATE/TIME: 12/31/2016 11:27 am REASON FOR STUDY: pulm embolism COMPARISON: Chest films 12/20/2016, 12/10/2016, 12/07/2015, 11/25/2015 is TECHNIQUE: CT scan of the chest performed using helical scanning technique with dynamic intravenous contrast injection. Images reviewed with lung, soft tissue and bone windows. Reconstructed coronal and sagittal MPR images reviewed. Additional 3 dimensional post-processing performed to develop Maximal Intensity Projection images (CA P). All images stored on PACS. All CT scanners at this facility use dose modulation, iterative reconstruction, and/or weight based d osing when appropriate to reduce radiation dose to as low as reasonably achievable (ALARA). [facility]: Dose Right [facility]: CareDose [facility]: Dose Right [facility]: Teradose 4D [facility]: [employer] CONTRAST TYPE AND DOSE: contrast/concentration: Isovue 370.00 mg/ml; Total Contrast Delivered: 74.0 ml; Total Saline Delivered: 110.0 ml Contrast bolus optimized for the pulmonary arteries. Not diagnostic for the aorta. RENAL FUNCTION: Creatinine 0.63 RADIATION DOSE: Up-to-date CT equipment and radiation dose reduction techniques were employed. CTDIv ol: 11.3 - 15.5 mGy. DLP: 612 mGy-cm. . LIMITATIONS: None. FINDINGS: LUNGS AND PLEURA: Calcified right upper lobe granuloma near the minor fissure. No acute i nfiltrates, pleural effusion, pneumothorax. No worrisome pulmonary nodules. Airways patent. AORTA AND GREAT VESSELS: No aneurysm. Contrast bolus not optimized for the aorta. HEART: No pericardial effusion. No significant coronary artery calcifications. PULMONARY ARTERIES: No emboli visualized in the main pulmonary arteries or the segmental branches. HILAR AND MEDIASTINAL STRUCTURES: No identified masses or abnormal nodes. HARDWARE: None in the chest. UPPER ABDOMEN: 1.7 cm left lobe liver cyst. THYROID AND OTHER SOFT TISSUES: 1.5 cm left lobe thyroid nodule with calcification axial image 14 BONES: No acute or significant finding. 3D MIPS: Confirm above findings. OTHER: No other significant finding. IMPRESSION: No CT angio evidence of acute or chronic pulmonary emboli COMMENT: Quality ID # [id number]: Final reports with documentation of one or more dose reduction techniques (e.g., Automated exposure control, adjustment of the mA and/or kV according to patient size, use of iterative reconstruction technique) TECHNICAL DOCUMENTATION: JOB ID: [id number] [employer]- All Rights Reserved
--- NOTE | 2016-12-31 13:53 | PROGRESS NOTE E ---
Progress Note NAME: ROMÁN ORTIZ : 1955 AGE: 61Y DATE: 12/31/2016 ROOM: 324 CODE STATUS: FULL CODE. CHIEF COMPLAINT: Shortness of breath. SUBJECTIVE: The patient is currently lying in bed. She states that she feels much better than when she came in today. The patient is still short of breath but overall is able to fully complete sentences. The patient denies any nausea, vomiting or diarrhea, no dizziness or chest pain. She admits to a strong cough but has not been able to produce any sputum, and the patient does not voice any other concerns at this time. REVIEW OF SYSTEMS: Rest of review of systems is negative. MEDICATIONS: Medications have been reviewed. OBJECTIVE: GENERAL: The patient is a 61-year-old female who is awake and alert and oriented to person, place, time and situation. She is verbal and conversational and does to appear to be in any acute distress. VITAL SIGNS: Temperature is 98.0, pulse 65, respirations 22, blood pressure 134/65, oxygen saturation is 94% on 2 L nasal cannula. SKIN: Warm and dry. No rashes, not diaphoretic. HEENT: Pupils are equal, round, reactive to light and accommodation. Conjunctivae pink. NECK: There is no JVP. CARDIOVASCULAR: Heart is regular. There is no murmur or rub. CHEST: Diminished but expiratory wheezes, symmetrical, unlabored. ABDOMEN: Soft, nontender and nondistended. BACK: No CVA tenderness or sacral edema. EXTREMITIES: No clubbing, cyanosis or edema. PSYCHIATRIC: Appropriate affect, pleasant mood. DIAGNOSTIC DATA: Lab values are as follows: Hematology obtained on 12/31/2016: WBC is 2.9, hemoglobin 13.2, hematocrit 39.0, and platelet count is 248,000. Chemistries obtained on 12/31/2016: Sodium is 146, potassium 4.2, chloride 105, carbon dioxide 29, BUN 17, creatinine 0.63, glucose 146, calcium 9.6, magnesium is 2.3. IMPRESSION AND PLAN: 1. CHRONIC OBSTRUCTIVE PULMONARY DISEASE EXACERBATION. Will continue steroids, nebulizers as well as Xopenex and BiPAP if needed. Currently awaiting sputum culture as well. Will continue current measures. 2. ACUTE HYPOXEMIC RESPIRATORY FAILURE. The patient is still requiring supplemental O2 but overall is much improved. 3. HYPERTENSION. Will continue the patient's home blood pressure medications. 4. TROPONIN LEAK. Feel it is due to the patient's hypoxia prior to being admitted. Will follow. 5. PERIPHERAL EXTREMITY EDEMA. Uncertain of the exact etiology of this; overall, this is much improved. Currently awaiting echocardiogram and follow. 6. OBESITY. Will encourage weight reduction. DISPOSITION: The patient is a FULL CODE. Pending the patient's symptomatology and diagnostic findings, will re-evaluate in the a.m. TIME SPENT: On this followup including assessment, plan, physical examination, and patient education is 35 minutes. DICTATING PHYSICIAN: MYA EVANS NP [id number] PHY#: [id number] ID: [id number] JOB#: [id number] ACCT: [id number] cc: >
--- NOTE | 2016-12-31 19:48 | XCELERA REPORT ---
[address] [address] Transthoracic Echocardiogram Report Name: ROMÁN ORTIZ Age: 61 yrs Gender: Female : 1955 Patient Status: Inpatient Patient Location: [address] [place] [address] Study Date: 12/31/2016 10:20 AM Height: 68 in Weight: 221 lb BSA: 2.1 m2 Procedure: A complete two-dimensional transthoracic echocardiogram was performed (2D, M-mode, spectral and color flow Doppler). The study was technically adequate with some images being suboptimal in quality. Reason For Study: elevated troponin Ordering Physician: ALECIA VILLEGAS Performed By: Yadira Washington Interpretation Summary The left ventricular ejection fraction is normal. There is mild concentric left ventricular hypertrophy. The left ventricle is grossly normal size. Doppler measurements suggest pseudonormalized left ventricular relaxation, which is associated with grade II/IV or mild to moderate diastolic dysfunction Wall motion cannot be accurately commented on, but no definite regional wall motion abnormalities noted. The right ventricular systolic function is normal. Borderline left atrial enlargement. The right atrium is normal in size There is a trace to mild amount of mitral regurgitation There is no mitral valve stenosis. There is no aortic valve stenosis No aortic regurgitation is present. There is a trace or physiologic amount of tricuspid regurgitation Tricuspid regurgitation jet envelope not well defined to measure RV systolic pressure accurately. The aortic root is not well visualized but is probably normal size. The inferior vena cava appeared normal and decreased > 50% with respiration (RAP 5-10 mmHg) There is no pericardial effusion. MMode/2D Measurements & Calculations RVDd: 3.9 cm LVIDd: 4.5 cm FS: 44.3 % Ao root diam: 2.4 cm IVSd: 1.1 cm LVIDs: 2.5 cm EDV(Teich): 90.4 ml LVPWd: 0.96 cm ESV(Teich): 22.0 ml Ao root area: 4.4 cm2 EF(Teich): 75.7 % LA dimension: 3.6 cm Doppler Measurements & Calculations MV E max huma: MV P1/2t max huma: Ao V2 max: LV V1 max P.1 cm/sec 107.1 cm/sec 166.8 cm/sec 6.4 mmHg MV A max huma: MV P1/2t: 63.3 msec Ao max PG: LV V1 max: 116.5 cm/sec 11.1 mmHg 126.4 cm/sec MV E/A: 0.91 MVA(P1/2t): 3.5 cm2 MV dec slope: 495.3 cm/sec2 MV dec time: 0.20 sec PA V2 max: 102.7 cm/sec PA max P.2 mmHg Left Ventricle The left ventricle is grossly normal size. There is mild concentric left ventricular hypertrophy. The left ventricular ejection fraction is normal. Doppler measurements suggest pseudonormalized left ventricular relaxation, which is associated with grade II/IV or mild to moderate diastolic dysfunction. Wall motion cannot be accurately commented on, but no definite regional wall motion abnormalities noted. Right Ventricle The right ventricle is grossly normal size. There is normal right ventricular wall thickness. The right ventricular systolic function is normal. Atria The right atrium is normal in size. Borderline left atrial enlargement. Interarterial septum not well visualized and not well dopplered. Cannot comment on ASD/PFO presence. Mitral Valve The mitral valve is grossly normal. There is no mitral valve stenosis. There is a trace to mild amount of mitral regurgitation. Aortic Valve The aortic valve is not well visualized secondary to technical limitations. There is no aortic valve stenosis. No aortic regurgitation is present. Tricuspid Valve The tricuspid valve is not well visualized, but is grossly normal. There is no tricuspid stenosis. There is a trace or physiologic amount of tricuspid regurgitation. Tricuspid regurgitation jet envelope not well defined to measure RV systolic pressure accurately. Pulmonic Valve The pulmonic valve is not well visualized. Great Vessels The aortic root is not well visualized but is probably normal size. The inferior vena cava appeared normal and decreased > 50% with respiration (RAP 5-10 mmHg). Effusions There is no pericardial effusion. : ALECIA VILLEGAS > Duran Christianson
--- NOTE | 2016-12-31 20:14 | PDOC CONSULTATION ---
Consultation Consult Date: 12/31/16 Attending physician:: MYA EVANS Consult reason:: Abnormal troponin I History of Present Illness Admission Date/PCP: 12/30/16 21:19 Patient complains of: Shortness of breath History of Present Illness: ROMÁN ORTIZ is a 61 year old female with no past medical history presents to the emergency department with shortness of breath. Patient reports approximately 4 days ago she developed a sinus drip but then began giving her a sore throat. She reports for that she used a home remedy of eating pickles. She reports that over the last 36 hours she has had increasing shortness of breath, lower extremity edema, orthopnea, dyspnea on exertion, fevers, subjective chills, and sputum productive of white clear sputum. She denies any chest pain during this time. Patient reports has been almost 5 years since she has been to the doctor. Patient however has been seen in the emergency department October or November and now December for shortness of breath. Most recently, patient was seen on 12/10/2016 patient was given prednisone, azithromycin, and Combivent inhaler. Patient would have completed steroids on 12/16/16. Patient does continue to smoke about 5 cigarettes a day on occasion. She reports that she quit smoking the bulk of this approximately a year ago. Currently, patient has received Solu-Medrol, magnesium sulfate, and currently requiring BiPAP. Patient was found to be hypoxic on presentation with an oxygen saturation in the 80s. She is referred to the hospitalist service for COPD exacerbation and acute hypoxemic respiratory failure. This history was reviewed and confirmed. Patient denied any prior history of myocardial infarction, angina. She denied any exertional chest pain. Patient subsequently was noted to have positive troponin I. I was therefore asked to evaluate patient. Patient's 12-lead EKGs 2 reviewed. This showed sinus tachycardia but without any acute ST-T wave changes. Patient currently receiving bronchodilator therapy and also intermittent BiPAP therapy. She is significantly improved. Past Medical History Pulmonary Medical History: Reports: Bronchitis - 2 ER visits for bronchitis with bronchospasm and suspected COPD in November, Chronic Obstructive Pulmonary Disease (COPD) Past Surgical History Past Surgical History: Reports: None Social History Information Source: Patient Smoking Status: Current Some Day Smoker Cigarettes Packs Per Day: 0.2 Last Time Smoked: 1 yr ago Frequency of Alcohol Use: None Hx Recreational Drug Use: No Hx Prescription Drug Abuse: No - Advance Directive Resuscitation Status: Full Code Family History Family History: None Parental Family History Reviewed: Yes Children Family History Reviewed: Yes Sibling(s) Family History Reviewed.: Yes - Negative for premature coronary artery disease or sudden cardiac in the family amongst first degree relatives. Medication/Allergy Home Medications: No Home Medications 12/30/16 Allergies/Adverse Reactions: No Known Allergies Allergy (Verified 12/30/16 18:09) Review of Systems Review of Systems: Please see history of present illness and past medical history as wall. Constitutional: Mild fever and chills reported. Head : No recent chronic headaches, recent head injury. Eyes: No recent eye pain, diplopia, redness, discharge, acute visual changes. Ears: No recent chronic ear pain, acute hearing loss, ear discharge. Oral cavity: No recent ulcerations, bleeding, oral cavity discomfort. Neck: No recent acute neck pain reported. Hematologic: No recent easy bruising or bleeding or hematologic malignancy reported. Lymphatic: No recent lymphatic malignancy, chronic lymphadenopathy reported yet Cardiovascular system review: See history of present illness. Respiratory system review: Cough and congestion symptoms noted. Sinus symptoms noted but denied any blood clots in the lungs. Shortness of breath on exertion Gastrointestinal system review: Negative for any recent acute or chronic abdominal pain, hematemesis, melena, recent change in bowel habits. Genitourinary system review: No recent acute or chronic hematuria, flank pain, UTI etc. reported. Skin system review: Negative for any recent abnormal bruising, no rash, no pruritus reported. Neurologic: No prior history of strokes, mini strokes, seizure disorder. Psychologic: No history of major psychosis or major depression reported. Musculoskeletal: Minor aches and pains reported. No acute joint swelling reported. Endocrine: No recent polyuria, polydipsia, recent heat or cold intolerance. Physical Exam Vital Signs: Temp Pulse Resp BP Pulse Ox 97.4 F 75 32 H 131/64 H 95 12/31/16 15:22 12/31/16 15:22 12/31/16 16:45 12/31/16 15:22 12/31/16 16:45 Intake & Output 12/30/16 12/31/16 01/01/17 06:59 06:59 06:59 Intake Total 110 2264 Output Total 250 200 Balance -140 2064 Weight 99.1 kg Exam: GENERAL: well-nourished and in no acute distress. Alert and oriented x3 HEAD: Atraumatic, normocephalic. EYES: Pupils equal round and reactive to light, extraocular movements intact, sclera anicteric, conjunctiva are normal. ENT: TMs normal, nares patent, oropharynx clear without exudates. Moist mucous membranes. No oral ulcerations or bleeding gums noted NECK: supple without lymphadenopathy. Trachea is central. No cervical or axillary lymphadenopathy noted. Carotids are 2+, JVD WNL LUNGS: Respiration seems nonlabored, no significant accessory muscle action noted. Bilateral wheezing noted. Few bibasilar crackles noted. No significant dullness noted on percussion. CHEST: Palpation of the chest wall shows no significant chest wall tenderness. No other significant abnormalities noted. HEART: Newman LOOP SEWER, No PSH, 1/6 EMIR aortic area, 1/6 mitchell systolic murmur mitral area, no rubs, no gallops. ABDOMEN: Soft, no significant tenderness appreciated, normoactive bowel sounds. No guarding, no rebound. No rigidity noted . No masses appreciated. EXTREMITIES: Pedal pulses are 1-2+, no calf tenderness noted. No clubbing or cyanosis. 1+ pedal edema noted NEUROLOGICAL: Focused neurological exam showed no significant neurologic deficit. Normal speech, no focal weakness appreciated. PSYCH: Normal mood, normal affect. Judgment and insight within normal limits. SKIN: No significant ecchymosis, rash, ulcerations or signs of pruritus noted. MUSCULOSKELETAL EXAM: No significant joint swelling noted. Results Laboratory Results: 12/31/16 06:37 12/31/16 06:37 12/30/16 12/30/16 12/31/16 22:22 23:58 01:24 WBC RBC Hgb Hct MCV MCH MCHC RDW Plt Count Seg Neutrophils % Lymphocytes % Monocytes % Eosinophils % Basophils % Absolute Neutrophils Absolute Lymphocytes Absolute Monocytes Absolute Eosinophils Absolute Basophils VBG pH 7.42 7.34 VBG pCO2 46.4 59.8 VBG HCO3 29.3 31.2 VBG Base Excess 4.0 3.7 Sodium Potassium Chloride Carbon Dioxide Anion Gap BUN Creatinine Est GFR ( Amer) Est GFR (Non-Af Amer) Glucose Lactic Acid 1.9 Calcium Magnesium Urine Color Urine Appearance Urine pH Ur Specific [place] Urine Protein Urine Glucose (UA) Urine Ketones Urine Blood Urine Nitrite Ur Leukocyte Esterase Urine WBC (Auto) Urine RBC (Auto) 12/31/16 12/31/16 12/31/16 06:37 06:37 06:47 WBC 10.9 H RBC 4.41 Hgb 13.2 Hct 39.0 MCV 89 MCH 29.9 MCHC 33.7 RDW 13.9 Plt Count 248 Seg Neutrophils % Not Reportable Lymphocytes % Not Reportable Monocytes % Not Reportable Eosinophils % Not Reportable Basophils % Not Reportable Absolute Neutrophils Not Reportable Absolute Lymphocytes Not Reportable Absolute Monocytes Not Reportable Absolute Eosinophils Not Reportable Absolute Basophils Not Reportable VBG pH VBG pCO2 VBG HCO3 VBG Base Excess Sodium 146.8 H Potassium 4.2 Chloride 105 Carbon Dioxide 29 Anion Gap 13 BUN 17 Creatinine 0.63 Est GFR ( Amer) > 60 Est GFR (Non-Af Amer) > 60 Glucose 146 H Lactic Acid Calcium 9.6 Magnesium 2.3 Urine Color YELLOW Urine Appearance SLIGHTLY-CLOUDY Urine pH 5.0 Ur Specific [place] 1.026 Urine Protein 30 H Urine Glucose (UA) NEGATIVE Urine Ketones NEGATIVE Urine Blood SMALL H Urine Nitrite NEGATIVE Ur Leukocyte Esterase NEGATIVE Urine WBC (Auto) 3 Urine RBC (Auto) 3 12/30/16 12/31/16 23:58 06:30 Troponin I 0.499 NT-Pro-B Natriuret Pep 855 EKG Comments: Twelve-lead EKG 2 obtained showed sinus rhythm with sinus tachycardia, no acute ST-T wave changes noted. Impressions: Chest X-Ray 12/30/16 17:55 IMPRESSION: NO ACUTE RADIOGRAPHIC FINDING IN THE CHEST. Chest/Abdomen CTA 12/31/16 09:19 IMPRESSION: No CT angio evidence of acute or chronic pulmonary emboli Assessment & Plan - Diagnosis (1) Elevated troponin Is this a current diagnosis for this admission?: Yes (2) Acute hypoxemic respiratory failure Is this a current diagnosis for this admission?: Yes (3) COPD with exacerbation Is this a current diagnosis for this admission?: Yes (4) Hypertension Qualifiers: Hypertension type: unspecified Qualified Code(s): I10 - Essential (primary ) hypertension Is this a current diagnosis for this admission?: Yes (5) Obesity (BMI 30.0-34.9) Is this a current diagnosis for this admission?: Yes - Notes Notes: Elevated troponin I: Most likely related to severe hypoxemia, respiratory acidosis and possibly CHF. EKGs has been negative. Will obtain a CT angiogram to rule out pulmonary embolism in view of troponin I leak and sinus tachycardia. This subsequently came back negative. Patient does have mild coronary calcification therefore would benefit from a nuclear stress test prior to discharge and when respiratory status has improved. 2D echo reviewed. It shows normal LVEF. No definite wall motion abnormalities noted. Hypoxemic respiratory failure, possibly acute on chronic or just acute, patient has accompanying hypercarbia and respiratory acidosis: Continue aggressive bronchodilator therapy, antibiotic therapy and steroid therapy. Agree with intermittent positive pressure therapy. COPD with exacerbation: Continue current management plans. Patient has been advised to quit smoking. Hypertension: Currently stable. Recommend blood pressure goal of 135/85 or less. Obesity: Patient has been advised to lose weight. Patient will benefit from a sleep apnea evaluation. - Time Time Spent: 30 to 50 Minutes - CODE STATUS was discussed, patient remains full code. Surrogate decision-maker unchanged. Multiple medical problems were addressed. More than 50% of the time spent coordinating care, discussing management plans with involved caregivers. Management plans discussed with involved personnels. Medical decision making was of moderate to high complexity , patient's has multiple comorbidities. Medications reviewed and adjusted accordingly: Yes
[2016-12-31 20:35] LABS: CHOLESTEROL 157.13 mg/dL (0-200); Direct HDL 34 mg/dL (>40); TRIGLYCERIDES 94 mg/dL (<150)
[2016-12-31 20:45] LABS: DIRECT LDL 115 mg/dL (<100)
[2016-12-31] MEDS: AZITHROMYCIN 250 MG TABLET PO SCH (21:54)
[2016-12-31] MEDS: ATORVASTATIN CALCIUM 40 MG TABLET PO SCH (21:54)
[2016-12-31] MEDS: CEFTRIAXONE 1 GM/D5W RTU 1 GM/50 ML RTUPB IV SCH (21:55)
[2017-01-01] MEDS: IPRATROPIUM/ALBUTEROL 0.5-2.5 MG/3 ML AMPUL NEB SCH ×4 (01:55→20:54)
[2017-01-01] MEDS: METHYLPREDNISOLONE INJ 125 MG/2 ML SDV IV SCH ×4 (05:27→23:33)
[2017-01-01 05:38] LABS: ANION GAP 9 (5-19); BLOOD UREA NITROGEN 24 mg/dL (7-20); CALCIUM 9.1 mg/dL (8.4-10.2); CARBON DIOXIDE 27 mmol/L (22-30); CHLORIDE 109 mmol/L (98-107); CREATININE RESULT 0.64 mg/dL (0.52-1.25); GLUCOSE 132 mg/dL (75-110); POTASSIUM 4.5 mmol/L (3.6-5.0)
[2017-01-01] MEDS: METOPROLOL SUCCINATE 25 MG TAB.SR.24H PO SCH ×2 (09:32→21:31)
[2017-01-01] MEDS: GUAIFENESIN 600 MG TABLET.SA PO SCH ×2 (09:32→21:30)
[2017-01-01] MEDS: ASPIRIN 325 MG TABLET, ENT COATED PO SCH (09:33)
[2017-01-01] MEDS: LISINOPRIL 10 MG TABLET PO SCH ×2 (09:33→21:30)
[2017-01-01] MEDS: ENOXAPARIN SODIUM INJ 40 MG/0.4 ML DISP.SYRIN SUBCUT SCH (09:34)
[2017-01-01] MEDS: FLUTICASONE NASAL SPRAY 50 MCG/SPRY 120 SPRAY/16 GM NASL SCH (09:34)
[2017-01-01] MEDS: TIOTROPIUM BROMIDE DPI 5 CAP/KIT (18 MCG/CAP) IH SCH (09:34)
--- NOTE | 2017-01-01 09:38 | EKG REPORT ---
SEVERITY:- BORDERLINE ECG - SINUS RHYTHM BORDERLINE T ABNORMALITIES, DIFFUSE LEADS : Confirmed by: Duran Christianson 01-Jan-2017 09:37:15
[2017-01-01] MEDS: NORMAL SALINE 1000 ML 1,000 ML IV PRN ×2 (12:10→21:22)
--- NOTE | 2017-01-01 12:55 | PDOC PROGRESS REPORT ---
Subjective Progress Note for:: 01/01/17 Subjective:: Patient seems to be doing better with gradual improvement. Pt is denying any chest arm or neck discomfort. Patient continues to be significantly short of breath with wheezing being noted. Patient denying any PND, orthopnea. Patient denied any sustained palpitations, dizziness, syncope, near syncope. Patient denying any fever chills. Patient denying any other significant discomfort. Patient is maintaining sinus rhythm. Review of systems: Rest review of systems negative. Medications: Medications have been reviewed. Physical Exam Vital Signs: Temp Pulse Resp BP Pulse Ox 97.9 F 75 30 H 130/61 H 98 01/01/17 07:49 01/01/17 08:21 01/01/17 08:21 01/01/17 07:49 01/01/17 08:21 Intake & Output 12/31/16 01/01/17 01/02/17 06:59 06:59 06:59 Intake Total 110 4867 Output Total 250 200 Balance -140 4667 Weight 99.1 kg Exam: GENERAL: well-nourished and in no acute distress. Alert and oriented x3 HEAD: Atraumatic, normocephalic. EYES: Pupils equal round and reactive to light, extraocular movements intact, sclera anicteric, conjunctiva are normal. ENT: TMs normal, nares patent, oropharynx clear without exudates. Moist mucous membranes. No oral ulcerations or bleeding gums noted NECK: supple without lymphadenopathy. Trachea is central. No cervical or axillary lymphadenopathy noted. Carotids are 2+, JVD WNL LUNGS: Respiration seems nonlabored, no significant accessory muscle action noted. Bilateral wheezes rales or rhonchi noted. No significant dullness noted on percussion. CHEST: Palpation of the chest wall shows no significant chest wall tenderness. No other significant abnormalities noted. HEART: Hiram [employer]ATOR, No PSH, 1/6 EMIR aortic area, 1/6 mitchell systolic murmur mitral area, no rubs, no gallops. ABDOMEN: Soft, no significant tenderness appreciated, normoactive bowel sounds. No guarding, no rebound. No rigidity noted . No masses appreciated. EXTREMITIES: Pedal pulses are 1-2+, no calf tenderness noted. No clubbing or cyanosis.trace to 1+ pedal edema noted NEUROLOGICAL: Focused neurological exam showed no significant neurologic deficit. Normal speech, no focal weakness appreciated. PSYCH: Normal mood, normal affect. Judgment and insight within normal limits. SKIN: No significant ecchymosis, rash, ulcerations or signs of pruritus noted. MUSCULOSKELETAL EXAM: No significant joint swelling noted. Results Laboratory Results: 12/31/16 06:37 01/01/17 04:53 12/31/16 01/01/17 04:37 04:53 Sodium 145.0 Potassium 4.5 Chloride 109 H Carbon Dioxide 27 Anion Gap 9 BUN 24 H Creatinine 0.64 Est GFR ( Amer) > 60 Est GFR (Non-Af Amer) > 60 Glucose 132 H Calcium 9.1 Triglycerides 94 Cholesterol 157.13 LDL Cholesterol Direct 115 H VLDL Cholesterol 19.0 HDL Cholesterol 34 L 12/30/16 12/31/16 23:58 06:30 Troponin I 0.499 NT-Pro-B Natriuret Pep 855 EKG Comments: EKG shows minor nonspecific ST-T changes. Impressions: Chest X-Ray 12/30/16 17:55 IMPRESSION: NO ACUTE RADIOGRAPHIC FINDING IN THE CHEST. Chest/Abdomen CTA 12/31/16 09:19 IMPRESSION: No CT angio evidence of acute or chronic pulmonary emboli Assessment & Plan - Diagnosis (1) Elevated troponin Is this a current diagnosis for this admission?: Yes (2) Acute hypoxemic respiratory failure Is this a current diagnosis for this admission?: Yes (3) COPD with exacerbation Is this a current diagnosis for this admission?: Yes (4) Hypertension Qualifiers: Hypertension type: unspecified Qualified Code(s): I10 - Essential (primary ) hypertension Is this a current diagnosis for this admission?: Yes (5) Obesity (BMI 30.0-34.9) Is this a current diagnosis for this admission?: Yes - Notes Notes: Patient continues to be significantly short of breath. This is mostly due to COPD exacerbation. 2D echo had shown normal LVEF. Continue with aggressive bronchodilator therapy and steroids as well as antibiotic therapy. Patient did have positive troponin I in the non-STEMI range. This is felt to be related to metabolic reasons rather than acute coronary syndrome. Would however recommend a stress test prior to discharge. At this point patient stable from cardiac standpoint without any evidence of CHF, congestive ongoing angina symptomatology or any significant dysrhythmia. Patient medical regimen has been reviewed and no changes made. Dr. Samson similar to cover from tomorrow. Will repeat an EKG in the morning to look for any additional changes. - Time Time with patient: 15-25 minutes - More than 50% of the time spent coordinating care, discussing management plans with involved caregivers. Management plans discussed with involved personnels. Medical decision making was of moderate to high complexity, patient's has multiple comorbidities. Medications reviewed and adjusted accordingly: Yes
[2017-01-01] MEDS: CEFTRIAXONE 1 GM/D5W RTU 1 GM/50 ML RTUPB IV SCH (21:28)
[2017-01-01] MEDS: AZITHROMYCIN 250 MG TABLET PO SCH (21:30)
[2017-01-01] MEDS: ATORVASTATIN CALCIUM 40 MG TABLET PO SCH (21:31)
[2017-01-02] MEDS: IPRATROPIUM/ALBUTEROL 0.5-2.5 MG/3 ML AMPUL NEB SCH ×4 (02:19→20:30)
[2017-01-02] MEDS: METHYLPREDNISOLONE INJ 125 MG/2 ML SDV IV SCH (05:45)
[2017-01-02] MEDS: NORMAL SALINE 1000 ML 1,000 ML IV PRN (05:49)
[2017-01-02] MEDS: GUAIFENESIN 600 MG TABLET.SA PO SCH ×2 (09:34→21:40)
[2017-01-02] MEDS: LISINOPRIL 10 MG TABLET PO SCH ×2 (09:34→21:39)
[2017-01-02] MEDS: ASPIRIN 325 MG TABLET, ENT COATED PO SCH (09:34)
[2017-01-02] MEDS: TIOTROPIUM BROMIDE DPI 5 CAP/KIT (18 MCG/CAP) IH SCH (09:35)
[2017-01-02] MEDS: METOPROLOL SUCCINATE 25 MG TAB.SR.24H PO SCH ×2 (09:35→21:40)
[2017-01-02] MEDS: FLUTICASONE NASAL SPRAY 50 MCG/SPRY 120 SPRAY/16 GM NASL SCH (09:36)
[2017-01-02] MEDS: ENOXAPARIN SODIUM INJ 40 MG/0.4 ML DISP.SYRIN SUBCUT SCH (09:36)
--- NOTE | 2017-01-02 09:38 | PDOC PROGRESS REPORT ---
Subjective Progress Note for:: 01/01/17 Subjective:: Patient was admitted with COPD exacerbation. She continues to have a productive cough. States she feels much better than she did prior to coming into the hospital. Shortness of breath is slowly improving. Continues to require O2 Physical Exam Vital Signs: Temp Pulse Resp BP Pulse Ox 97.9 F 75 30 H 130/61 H 98 01/01/17 07:49 01/01/17 08:21 01/01/17 08:21 01/01/17 07:49 01/01/17 08:21 Intake & Output 12/31/16 01/01/17 01/02/17 06:59 06:59 06:59 Intake Total 110 4867 Output Total 250 200 Balance -140 4667 Weight 99.1 kg General appearance: PRESENT: no acute distress, well-developed, well-nourished Head exam: PRESENT: atraumatic, normocephalic Eye exam: PRESENT: conjunctiva pink, EOMI, PERRLA. ABSENT: scleral icterus Ear exam: PRESENT: normal external ear exam Mouth exam: PRESENT: moist, tongue midline Neck exam: ABSENT: carotid bruit, JVD, lymphadenopathy, thyromegaly Respiratory exam: PRESENT: clear to auscultation marcio, rhonchi, unlabored, wheezes. ABSENT: rales Cardiovascular exam: PRESENT: RRR. ABSENT: diastolic murmur, rubs, systolic murmur Pulses: PRESENT: normal dorsalis pedis pul Vascular exam: PRESENT: normal capillary refill GI/Abdominal exam: PRESENT: normal bowel sounds, soft. ABSENT: distended, guarding, mass, organolmegaly, rebound, tenderness Rectal exam: PRESENT: deferred Extremities exam: PRESENT: full ROM. ABSENT: calf tenderness, clubbing, pedal edema Neurological exam: PRESENT: alert, awake, oriented to person, oriented to place , oriented to time, oriented to situation, CN II-XII grossly intact. ABSENT: motor sensory deficit Psychiatric exam: PRESENT: appropriate affect, normal mood. ABSENT: homicidal ideation, suicidal ideation Skin exam: PRESENT: dry, intact, warm. ABSENT: cyanosis, rash Results Laboratory Results: 12/31/16 06:37 01/01/17 04:53 12/31/16 01/01/17 04:37 04:53 Sodium 145.0 Potassium 4.5 Chloride 109 H Carbon Dioxide 27 Anion Gap 9 BUN 24 H Creatinine 0.64 Est GFR ( Amer) > 60 Est GFR (Non-Af Amer) > 60 Glucose 132 H Calcium 9.1 Triglycerides 94 Cholesterol 157.13 LDL Cholesterol Direct 115 H VLDL Cholesterol 19.0 HDL Cholesterol 34 L 12/30/16 12/31/16 23:58 06:30 Troponin I 0.499 NT-Pro-B Natriuret Pep 855 Impressions: Chest X-Ray 12/30/16 17:55 IMPRESSION: NO ACUTE RADIOGRAPHIC FINDING IN THE CHEST. Chest/Abdomen CTA 12/31/16 09:19 IMPRESSION: No CT angio evidence of acute or chronic pulmonary emboli Assessment & Plan - Diagnosis (1) Acute hypoxemic respiratory failure Is this a current diagnosis for this admission?: Yes Plan: Continues to have some wheezing. Continues to require 2 L O2. O2 sats at rest dropped down to 86% on room air. Patient states she continues to have increased amount of mucus. (2) COPD with exacerbation Is this a current diagnosis for this admission?: Yes Plan: Patient states she quit smoking about a year ago. Her H&P she was smoking about 5 cigarettes a day. (3) Obesity (BMI 30.0-34.9) Is this a current diagnosis for this admission?: Yes Plan: Lifestyle modification and medical management recommended - Plan Summary Plan Summary: Plan continue IV antibiotics. Solu-Medrol, and inhale steroids.
--- NOTE | 2017-01-02 09:41 | PDOC PROGRESS REPORT ---
Subjective Progress Note for:: 01/02/17 Subjective:: Patient was admitted with COPD exacerbation. She continues to have a productive cough. States she feels much better than she did prior to coming into the hospital. Shortness of breath is slowly improving. Continues to require O2 Physical Exam Vital Signs: Temp Pulse Resp BP Pulse Ox 98.3 F 60 18 134/60 H 92 01/02/17 07:50 01/02/17 07:50 01/02/17 07:50 01/02/17 07:50 01/02/17 07:50 Intake & Output 01/01/17 01/02/17 01/03/17 06:59 06:59 06:59 Intake Total 4867 5843 Output Total 200 2000 Balance 4667 3843 Weight 99.1 kg 104.8 kg General appearance: PRESENT: no acute distress, well-developed, well-nourished Head exam: PRESENT: atraumatic, normocephalic Eye exam: PRESENT: conjunctiva pink, EOMI, PERRLA. ABSENT: scleral icterus Ear exam: PRESENT: normal external ear exam Mouth exam: PRESENT: moist, tongue midline Neck exam: ABSENT: carotid bruit, JVD, lymphadenopathy, thyromegaly Respiratory exam: PRESENT: clear to auscultation marcio, decreased breath sounds, rales, rhonchi, unlabored, wheezes Cardiovascular exam: PRESENT: RRR. ABSENT: diastolic murmur, rubs, systolic murmur Pulses: PRESENT: normal dorsalis pedis pul Vascular exam: PRESENT: normal capillary refill GI/Abdominal exam: PRESENT: normal bowel sounds, soft. ABSENT: distended, guarding, mass, organolmegaly, rebound, tenderness Rectal exam: PRESENT: deferred Extremities exam: PRESENT: full ROM. ABSENT: calf tenderness, clubbing, pedal edema Neurological exam: PRESENT: alert, awake, oriented to person, oriented to place , oriented to time, oriented to situation, CN II-XII grossly intact. ABSENT: motor sensory deficit Psychiatric exam: PRESENT: appropriate affect, normal mood. ABSENT: homicidal ideation, suicidal ideation Skin exam: PRESENT: dry, intact, warm. ABSENT: cyanosis, rash Results Laboratory Results: 12/31/16 06:37 01/01/17 04:53 12/30/16 12/31/16 23:58 06:30 Troponin I 0.499 NT-Pro-B Natriuret Pep 855 Impressions: Chest X-Ray 12/30/16 17:55 IMPRESSION: NO ACUTE RADIOGRAPHIC FINDING IN THE CHEST. Chest/Abdomen CTA 12/31/16 09:19 IMPRESSION: No CT angio evidence of acute or chronic pulmonary emboli Assessment & Plan - Diagnosis (1) COPD with exacerbation Is this a current diagnosis for this admission?: Yes Plan: Patient states she quit smoking about a year ago. Her H&P she was smoking about 5 cigarettes a day. Will try to wean her O2 today. (2) Obesity (BMI 30.0-34.9) Is this a current diagnosis for this admission?: Yes Plan: Lifestyle modification and medical management recommended (3) Acute hypoxemic respiratory failure Is this a current diagnosis for this admission?: Yes Plan: Continues to have some wheezing. Continues to require 2 L O2. O2 sats at rest dropped down to 86% on room air. Patient states she continues to have increased amount of mucus. DC IV fluids, decrease Solu-Medrol, suspect patient has a little bit of fluid overload. We will give her 1 shot of IV Lasix today reevaluate again in the a.m. monitor labs.
[2017-01-02] MEDS ORDERED: FUROSEMIDE INJ/PF 20 MG/2 ML SDV IV ONE (09:45)
[2017-01-02] MEDS: METHYLPREDNISOLONE INJ 40 MG/1 ML SDV IV SCH ×2 (13:48→21:38)
--- NOTE | 2017-01-02 19:40 | PDOC PROGRESS REPORT ---
Subjective Progress Note for:: 01/02/17 Subjective:: Patient seems to be doing better with gradual improvement. Pt is denying any chest arm or neck discomfort. Patient continues to be significantly short of breath with wheezing being noted. Patient denying any PND, orthopnea. Patient denied any sustained palpitations, dizziness, syncope, near syncope. Patient denying any fever chills. Patient denying any other significant discomfort. Patient is maintaining sinus rhythm. Review of systems: Rest review of systems negative. Medications: Medications have been reviewed. Physical Exam Vital Signs: Temp Pulse Resp BP Pulse Ox 98.4 F 65 18 135/73 H 91 L 01/02/17 16:00 01/02/17 16:00 01/02/17 16:00 01/02/17 16:00 01/02/17 16:00 Intake & Output 01/01/17 01/02/17 01/03/17 06:59 06:59 06:59 Intake Total 4867 5843 2029 Output Total 200 2000 1000 Balance 4667 3843 1029 Weight 99.1 kg 104.8 kg Exam: GENERAL: well-nourished and in no acute distress. Alert and oriented x3 HEAD: Atraumatic, normocephalic. EYES: Pupils equal round and reactive to light, extraocular movements intact, sclera anicteric, conjunctiva are normal. ENT: TMs normal, nares patent, oropharynx clear without exudates. Moist mucous membranes. No oral ulcerations or bleeding gums noted NECK: supple without lymphadenopathy. Trachea is central. No cervical or axillary lymphadenopathy noted. Carotids are 2+, JVD WNL LUNGS: Respiration seems nonlabored, no significant accessory muscle action noted. Bilateral wheezes rales or rhonchi noted. No significant dullness noted on percussion. CHEST: Palpation of the chest wall shows no significant chest wall tenderness. No other significant abnormalities noted. 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 ABDOMEN: Soft, no significant tenderness appreciated, normoactive bowel sounds. No guarding, no rebound. No rigidity noted . No masses appreciated. EXTREMITIES: Pedal pulses are 1-2+, no calf tenderness noted. No clubbing or cyanosis.trace to 1+ pedal edema noted NEUROLOGICAL: Focused neurological exam showed no significant neurologic deficit. Normal speech, no focal weakness appreciated. PSYCH: Normal mood, normal affect. Judgment and insight within normal limits. SKIN: No significant ecchymosis, rash, ulcerations or signs of pruritus noted. MUSCULOSKELETAL EXAM: No significant joint swelling noted. Results Laboratory Results: 12/31/16 06:37 01/01/17 04:53 12/31/16 06:47 Clean Catch Midstream Urine Culture - Final Mixed Urogenital Vijaya 12/30/16 12/31/16 23:58 06:30 Troponin I 0.499 NT-Pro-B Natriuret Pep 855 EKG Comments: Telemetry strips shows sinus rhythm without any sustained tachycardia or bradycardia arrhythmias. Impressions: Chest X-Ray 12/30/16 17:55 IMPRESSION: NO ACUTE RADIOGRAPHIC FINDING IN THE CHEST. Chest/Abdomen CTA 12/31/16 09:19 IMPRESSION: No CT angio evidence of acute or chronic pulmonary emboli Assessment & Plan - Diagnosis (1) Elevated troponin Is this a current diagnosis for this admission?: Yes (2) Acute hypoxemic respiratory failure Is this a current diagnosis for this admission?: Yes (3) COPD with exacerbation Is this a current diagnosis for this admission?: Yes (4) Hypertension Qualifiers: Hypertension type: unspecified Qualified Code(s): I10 - Essential (primary ) hypertension Is this a current diagnosis for this admission?: Yes (5) Obesity (BMI 30.0-34.9) Is this a current diagnosis for this admission?: Yes - Notes Notes: Patient still significant short of breath with wheezing. Once patient respiratory status improves will schedule patient for a nuclear stress test. Hopefully this can be performed by Wednesday. Patient's medical management is being adjusted in conjunction with hospitalist. Will examine tomorrow and schedule nuclear stress test for Wednesday if patient breathing status has improved. Patient's other multiple comorbidities were reviewed. Currently stable. Currently most concern is COPD exacerbation and intermittent hypoxemia. - Time Time with patient: 15-25 minutes - CODE STATUS was discussed, patient remains full code. Surrogate decision-maker unchanged. Multiple medical problems were addressed. More than 50% of the time spent coordinating care, discussing management plans with involved caregivers. Management plans discussed with involved personnels. Medical decision making was of moderate to high complexity , patient's has multiple comorbidities. Medications reviewed and adjusted accordingly: Yes
[2017-01-02] MEDS: AZITHROMYCIN 250 MG TABLET PO SCH (21:39)
[2017-01-02] MEDS: CEFTRIAXONE 1 GM/D5W RTU 1 GM/50 ML RTUPB IV SCH (21:40)
[2017-01-02] MEDS: ATORVASTATIN CALCIUM 40 MG TABLET PO SCH (21:40)
[2017-01-03] MEDS: IPRATROPIUM/ALBUTEROL 0.5-2.5 MG/3 ML AMPUL NEB SCH ×4 (02:22→20:19)
[2017-01-03] MEDS: METHYLPREDNISOLONE INJ 40 MG/1 ML SDV IV SCH ×3 (06:05→21:26)
[2017-01-03 07:42] LABS: ABSOLUTE LYMPHOCYTES (AUTO) 1.1 10^3/uL (0.5-4.7); ABSOLUTE MONOCYTES (AUTO) 0.6 10^3/uL (0.1-1.4); ABSOLUTE NEUT (AUTO) 7.9 10^3/uL (1.7-8.2); BASOPHILS % (AUTO) 0.1 % (0-2); EOSINOPHILS % (AUTO) 0.1 % (0-6); HEMATOCRIT 35.4 % (36.0-47.0); HEMOGLOBIN 11.8 g/dL (12.0-15.5); MEAN CORPUSCULAR HEMOGLOBIN 29.6 pg (27.0-33.4); MEAN CORPUSCULAR HGB CONC 33.2 g/dL (32.0-36.0); MEAN CORPUSCULAR VOLUME 89 fl (80-97); MONOCYTES % (AUTO) 5.9 % (3-13); RED BLOOD COUNT 3.98 10^6/uL (3.72-5.28); SEGMENTED NEUTROPHILS % (AUTO) 82.9 % (42-78); WHITE BLOOD COUNT 9.5 10^3/uL (4.0-10.5)
[2017-01-03 08:05] LABS: ANION GAP 14 (5-19); BLOOD UREA NITROGEN 20 mg/dL (7-20); CALCIUM 9.1 mg/dL (8.4-10.2); CARBON DIOXIDE 32 mmol/L (22-30); CHLORIDE 101 mmol/L (98-107); CREATININE RESULT 0.75 mg/dL (0.52-1.25); GLUCOSE 110 mg/dL (75-110); POTASSIUM 3.8 mmol/L (3.6-5.0); SODIUM 146.9 mmol/L (137-145)
[2017-01-03] MEDS: TIOTROPIUM BROMIDE DPI 5 CAP/KIT (18 MCG/CAP) IH SCH (10:46)
[2017-01-03] MEDS: METOPROLOL SUCCINATE 25 MG TAB.SR.24H PO SCH ×2 (10:46→21:27)
[2017-01-03] MEDS: FLUTICASONE NASAL SPRAY 50 MCG/SPRY 120 SPRAY/16 GM NASL SCH (10:46)
[2017-01-03] MEDS: ASPIRIN 325 MG TABLET, ENT COATED PO SCH (10:47)
[2017-01-03] MEDS: GUAIFENESIN 600 MG TABLET.SA PO SCH ×2 (10:47→21:27)
[2017-01-03] MEDS: ENOXAPARIN SODIUM INJ 40 MG/0.4 ML DISP.SYRIN SUBCUT SCH (10:47)
[2017-01-03] MEDS: LISINOPRIL 10 MG TABLET PO SCH (10:47)
--- NOTE | 2017-01-03 13:42 | PDOC PROGRESS REPORT ---
Subjective Progress Note for:: 01/03/17 Subjective:: Patient was admitted with COPD exacerbation. She continues to have a productive cough. States she feels much better than she did prior to coming into the hospital. Shortness of breath is slowly improving. Continues to require O2. Patient ambulated in the shepherd today O2 sats dropped on room air to 83%. Patient sitting in the chair O2 sat dropped to 87%. Continues to require 2 L satting 94 percent. Ambulating with oxygen sats were 91%. Physical Exam Vital Signs: Temp Pulse Resp BP Pulse Ox 99.0 F 74 16 171/86 H 91 L 01/03/17 07:51 01/03/17 08:23 01/03/17 08:23 01/03/17 07:51 01/03/17 07:51 Intake & Output 01/02/17 01/03/17 01/04/17 06:59 06:59 06:59 Intake Total 5843 3149 Output Total 1999 1999 Balance 3843 1149 Weight 104.8 kg 103.7 kg General appearance: PRESENT: no acute distress, well-developed, well-nourished Head exam: PRESENT: atraumatic, normocephalic Eye exam: PRESENT: conjunctiva pink, EOMI, PERRLA. ABSENT: scleral icterus Ear exam: PRESENT: normal external ear exam Mouth exam: PRESENT: moist, tongue midline Neck exam: ABSENT: carotid bruit, JVD, lymphadenopathy, thyromegaly Respiratory exam: PRESENT: accessory muscle use, rhonchi, unlabored, wheezes. ABSENT: rales Cardiovascular exam: PRESENT: RRR. ABSENT: diastolic murmur, rubs, systolic murmur Pulses: PRESENT: normal dorsalis pedis pul Vascular exam: PRESENT: normal capillary refill GI/Abdominal exam: PRESENT: normal bowel sounds, soft. ABSENT: distended, guarding, mass, organolmegaly, rebound, tenderness Rectal exam: PRESENT: deferred Extremities exam: PRESENT: full ROM. ABSENT: calf tenderness, clubbing, pedal edema Neurological exam: PRESENT: alert, awake, oriented to person, oriented to place , oriented to time, oriented to situation, CN II-XII grossly intact. ABSENT: motor sensory deficit Psychiatric exam: PRESENT: appropriate affect, normal mood. ABSENT: homicidal ideation, suicidal ideation Skin exam: PRESENT: dry, intact, warm. ABSENT: cyanosis, rash Results Laboratory Results: 01/03/17 06:56 01/03/17 06:56 01/03/17 01/03/17 06:56 06:56 WBC 9.5 RBC 3.98 Hgb 11.8 L Hct 35.4 L MCV 89 MCH 29.6 MCHC 33.2 RDW 14.0 Plt Count 191 Seg Neutrophils % 82.9 H Lymphocytes % 11.0 L Monocytes % 5.9 Eosinophils % 0.1 Basophils % 0.1 Absolute Neutrophils 7.9 Absolute Lymphocytes 1.1 Absolute Monocytes 0.6 Absolute Eosinophils 0.0 Absolute Basophils 0.0 Sodium 146.9 H Potassium 3.8 Chloride 101 Carbon Dioxide 32 H Anion Gap 14 BUN 20 Creatinine 0.75 Est GFR ( Amer) > 60 Est GFR (Non-Af Amer) > 60 Glucose 110 Calcium 9.1 12/31/16 02:40 Sputum Gram Stain - Final 12/31/16 02:40 Sputum Sputum Culture - Final NORMAL VIJAYA 12/31/16 06:47 Clean Catch Midstream Urine Culture - Final Mixed Urogenital Vijaya 12/30/16 12/31/16 23:58 06:30 Troponin I 0.499 NT-Pro-B Natriuret Pep 855 Impressions: Chest X-Ray 12/30/16 17:55 IMPRESSION: NO ACUTE RADIOGRAPHIC FINDING IN THE CHEST. Chest/Abdomen CTA 12/31/16 09:19 IMPRESSION: No CT angio evidence of acute or chronic pulmonary emboli Assessment & Plan - Diagnosis (1) COPD with exacerbation Is this a current diagnosis for this admission?: Yes Plan: Patient states she quit smoking about a year ago. Her H&P she was smoking about 5 cigarettes a day. Will try to wean her O2 patient not tolerating weaning may need to go home with O2. Started patient on Symbicort and she is currently on Spiriva. Continue nebulizers consider handheld prior to discharge. (2) Obesity (BMI 30.0-34.9) Is this a current diagnosis for this admission?: Yes Plan: Lifestyle modification and medical management recommended (3) Acute hypoxemic respiratory failure Plan: Continues to have some wheezing. Continues to require 2 L O2. O2 sats at rest dropped down to 86% on room air. Patient states she continues to have increased amount of mucus. DC IV fluids, decrease Solu-Medrol, suspect patient has a little bit of fluid overload. We will give her 1 shot of IV Lasix today reevaluate again in the a.m. monitor labs. Shortness of breath is slowly improving. Continues to require O2. Patient ambulated in the shepherd today O2 sats dropped on room air to 83%. Patient sitting in the chair O2 sat dropped to 87%. Continues to require 2 L satting 94 percent. Ambulating with oxygen sats were 91%.
--- NOTE | 2017-01-03 15:57 | PDOC PROGRESS REPORT ---
Subjective Progress Note for:: 01/03/17 Subjective:: Patient seems to be doing better with gradual improvement. Breathing today noted to be much improved. Pt is denying any chest arm or neck discomfort. Patient continues to be significantly short of breath with wheezing being noted. Patient denying any PND, orthopnea. Patient denied any sustained palpitations, dizziness, syncope, near syncope. Patient denying any fever chills. Patient denying any other significant discomfort. Patient is maintaining sinus rhythm. Review of systems: Rest review of systems negative. Medications: Medications have been reviewed. Physical Exam Vital Signs: Temp Pulse Resp BP Pulse Ox 97.6 F 69 16 153/70 H 92 01/03/17 11:38 01/03/17 14:00 01/03/17 14:00 01/03/17 11:38 01/03/17 11:38 Intake & Output 01/02/17 01/03/17 01/04/17 06:59 06:59 06:59 Intake Total 5843 3149 237 Output Total 1999 1999 Balance 3843 1149 237 Weight 104.8 kg 103.7 kg Exam: GENERAL: well-nourished and in no acute distress. Alert and oriented x3 HEAD: Atraumatic, normocephalic. EYES: Pupils equal round and reactive to light, extraocular movements intact, sclera anicteric, conjunctiva are normal. ENT: TMs normal, nares patent, oropharynx clear without exudates. Moist mucous membranes. No oral ulcerations or bleeding gums noted NECK: supple without lymphadenopathy. Trachea is central. No cervical or axillary lymphadenopathy noted. Carotids are 2+, JVD WNL LUNGS: Respiration seems nonlabored, no significant accessory muscle action noted. Improved bilateral but still mild wheezes rales or rhonchi noted. No significant dullness noted on percussion. CHEST: Palpation of the chest wall shows no significant chest wall tenderness. No other significant abnormalities noted. 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 ABDOMEN: Soft, no significant tenderness appreciated, normoactive bowel sounds. No guarding, no rebound. No rigidity noted . No masses appreciated. EXTREMITIES: Pedal pulses are 1-2+, no calf tenderness noted. No clubbing or cyanosis.trace to 1+ pedal edema noted NEUROLOGICAL: Focused neurological exam showed no significant neurologic deficit. Normal speech, no focal weakness appreciated. PSYCH: Normal mood, normal affect. Judgment and insight within normal limits. SKIN: No significant ecchymosis, rash, ulcerations or signs of pruritus noted. MUSCULOSKELETAL EXAM: No significant joint swelling noted. Results Laboratory Results: 01/03/17 06:56 01/03/17 06:56 01/03/17 01/03/17 06:56 06:56 WBC 9.5 RBC 3.98 Hgb 11.8 L Hct 35.4 L MCV 89 MCH 29.6 MCHC 33.2 RDW 14.0 Plt Count 191 Seg Neutrophils % 82.9 H Lymphocytes % 11.0 L Monocytes % 5.9 Eosinophils % 0.1 Basophils % 0.1 Absolute Neutrophils 7.9 Absolute Lymphocytes 1.1 Absolute Monocytes 0.6 Absolute Eosinophils 0.0 Absolute Basophils 0.0 Sodium 146.9 H Potassium 3.8 Chloride 101 Carbon Dioxide 32 H Anion Gap 14 BUN 20 Creatinine 0.75 Est GFR ( Amer) > 60 Est GFR (Non-Af Amer) > 60 Glucose 110 Calcium 9.1 12/31/16 02:40 Sputum Gram Stain - Final 12/31/16 02:40 Sputum Sputum Culture - Final NORMAL JANELLE 12/30/16 12/31/16 23:58 06:30 Troponin I 0.499 NT-Pro-B Natriuret Pep 855 EKG Comments: Telemetry strip shows sinus rhythm without any sustained tachycardia or bradycardia arrhythmias. Impressions: Chest X-Ray 12/30/16 17:55 IMPRESSION: NO ACUTE RADIOGRAPHIC FINDING IN THE CHEST. Chest/Abdomen CTA 12/31/16 09:19 IMPRESSION: No CT angio evidence of acute or chronic pulmonary emboli Assessment & Plan - Diagnosis (1) Elevated troponin Is this a current diagnosis for this admission?: Yes (2) Acute hypoxemic respiratory failure Is this a current diagnosis for this admission?: Yes (3) COPD with exacerbation Is this a current diagnosis for this admission?: Yes (4) Hypertension Qualifiers: Hypertension type: unspecified Qualified Code(s): I10 - Essential (primary ) hypertension Is this a current diagnosis for this admission?: Yes (5) Obesity (BMI 30.0-34.9) Is this a current diagnosis for this admission?: Yes - Notes Notes: Elevated troponin I: Most likely related to severe hypoxemia, respiratory acidosis and possibly CHF. EKGs has been negative. Patient being is scheduled for a nuclear stress test for Wednesday. 2D echo reviewed. It shows normal LVEF. No definite wall motion abnormalities noted. Hypoxemic respiratory failure, possibly acute on chronic or just acute, patient has accompanying hypercarbia and respiratory acidosis: Continue aggressive bronchodilator therapy, antibiotic therapy and steroid therapy. Agree with intermittent positive pressure therapy. COPD with exacerbation: Continue current management plans. Patient has been advised to quit smoking. Hypertension: Currently stable. Recommend blood pressure goal of 135/85 or less. Obesity: Patient has been advised to lose weight. Patient will benefit from a sleep apnea evaluation. - Time Time with patient: 15-25 minutes - More than 50% of the time spent coordinating care, discussing management plans with involved caregivers. Management plans discussed with involved personnels. Medical decision making was of moderate to high complexity, patient's has multiple comorbidities. Medications reviewed and adjusted accordingly: Yes
[2017-01-03] MEDS ORDERED: HYDRALAZINE HCL 25 MG TABLET PO PRN (17:49)
[2017-01-03] MEDS ORDERED: AMLODIPINE BESYLATE 10 MG TABLET PO ONE (17:49)
[2017-01-03] MEDS ORDERED: GLUCAGON,HUMAN RECOMB 1 MG INJ SUBCUT PRN (19:36)
[2017-01-03] MEDS ORDERED: DEXTROSE 40% GEL 15 GM TUBE PO PRN ×2 (19:36)
[2017-01-03] MEDS ORDERED: DEXTROSE 50%-WATER 25 GM/50 ML DISP.SYRIN IV PRN ×2 (19:36)
[2017-01-03] MEDS: CEFTRIAXONE 1 GM/D5W RTU 1 GM/50 ML RTUPB IV SCH (21:26)
[2017-01-03] MEDS: AZITHROMYCIN 250 MG TABLET PO SCH (21:26)
[2017-01-03] MEDS: ATORVASTATIN CALCIUM 40 MG TABLET PO SCH (21:27)
[2017-01-03] MEDS: BUDESONIDE/FORMOTEROL 160-4.5 MCG 60 PUFF/6 GM MDI IH SCH (21:30)
[2017-01-04] MEDS: IPRATROPIUM/ALBUTEROL 0.5-2.5 MG/3 ML AMPUL NEB SCH ×3 (02:13→14:37)
[2017-01-04] MEDS: METHYLPREDNISOLONE INJ 40 MG/1 ML SDV IV SCH ×2 (06:27→13:41)
[2017-01-04 09:11] LABS: CREATINE KINASE MB 1.91 ng/mL (<4.55); TROPONIN I 0.024 ng/mL
[2017-01-04] MEDS ORDERED: AMLODIPINE BESYLATE 10 MG TABLET PO SCH (10:00)
[2017-01-04] MEDS ORDERED: LISINOPRIL 10 MG TABLET PO SCH (10:00)
[2017-01-04] MEDS ORDERED: REGADENOSON INJ 0.4 MG/5 ML DISP.SYRIN IV ONE (12:45)
[2017-01-04] MEDS: ASPIRIN 325 MG TABLET, ENT COATED PO SCH (13:27)
[2017-01-04] MEDS: METOPROLOL SUCCINATE 25 MG TAB.SR.24H PO SCH (13:28)
[2017-01-04] MEDS: GUAIFENESIN 600 MG TABLET.SA PO SCH (13:29)
[2017-01-04] MEDS: TIOTROPIUM BROMIDE DPI 5 CAP/KIT (18 MCG/CAP) IH SCH (13:31)
[2017-01-04] MEDS: FLUTICASONE NASAL SPRAY 50 MCG/SPRY 120 SPRAY/16 GM NASL SCH (13:33)
[2017-01-04] MEDS: BUDESONIDE/FORMOTEROL 160-4.5 MCG 60 PUFF/6 GM MDI IH SCH (13:33)
[2017-01-04] MEDS: ENOXAPARIN SODIUM INJ 40 MG/0.4 ML DISP.SYRIN SUBCUT SCH (13:34)
[2017-01-04 16:47] VITALS: BP 176/70
--- NOTE | 2017-01-04 17:38 | DISCHARGE SUMMARY E ---
Discharge Summary NAME: ROMÁN ORTIZ : 1955 AGE: 61Y ADMITTED: 12/30/2016 DISCHARGED: 01/04/2017 CODE STATUS: FULL CODE. PRIMARY CARE PROVIDER: [place] DISCHARGE DIAGNOSES: 1. Chronic obstructive pulmonary disease exacerbation. 2. [id number] hypoxemic respiratory failure with now oxygen dependency. 3. Hypertension. 4. Troponin leak secondary to hypoxia. 5. Obesity. 6. Mild diastolic dysfunction. 7. A 1.7 cm hepatic cyst. 8. A 1.5 cm left thyroid nodule. 9. Acute bronchitis. DISCHARGE MEDICATIONS: 1. Spiriva 1 capsule inhalation daily, 1 kit, 0 refills. 2. Prednisone 60 mg taper. 3. Toprol XL 25 mg p.o. q.12 hours, 60 tablets, 0 refills. 4. Lisinopril 10 mg p.o. daily, 30 tablets with 0 refills. 5. Flonase 2 sprays nasally daily, 1 bottle, 0 refills. 6. Ceftin 500 mg p.o. b.i.d., 12 tablets, 0 refills. 7. Symbicort 2 puff inhalation q.12 hours, 1 inhaler, 0 refills. 8. Zithromax 250 mg p.o. at hour of sleep times 3 tablets. 9. Lipitor 40 mg p.o. at hour of sleep, 30 tablets with 0 refills. 10. Aspirin 325 mg p.o. daily, 30 tablets with 0 refills. 11. Norvasc 10 mg p.o. daily, 30 tablets with 0 refills. 12. ProAir HFA 1 puff inhalation q.4 hours p.r.n, 1 MDI, 0 refills. 13. O2 at 2 L via nasal cannula. DIET: As tolerated. ACTIVITY: As tolerated. DIAGNOSTICS: Lab values are follow: Hematology obtained on 01/03/2017: WBCs are 9.5, hemoglobin is 11.8, hematocrit is 35.4, platelet count is 191,000. Venous blood gas obtained on 12/31/2016: The pH is 7.34, pCO2 is 59.8, bicarb is 30.5. Chemistry obtained on 01/04/2017: Sodium is 146, potassium 3.8, chloride is 101, carbon dioxide 32, BUN 20, creatinine is 0.75, glucose 110, lactic acid is 1.9, calcium is 9.1, magnesium is 2.3, CK 87, CK-MB is 1.91, troponin is 0.024, BNP is 855, total bilirubin is 0.4, AST 20, ALT is 21, alk phos 136, CK 90, total protein 8.9, albumin 4.4. Triglycerides are 94, cholesterol 157, LDL 115, VLDL 19, HDL is 34. Urinalysis obtained on 12/31/2016: Color yellow, appearance slightly cloudy, pH 5.0, specific gravity 1.026, protein 30, glucose negative, ketones negative, occult blood small, nitrate negative, bilirubin negative, urobilinogen negative, leukocyte esterase negative, WBC 3, RBC 3, mucous occasional, ascorbic acid is negative. Microbiology: Blood cultures obtained on 12/30/2016 reveal no growth. Sputum culture obtained on 12/31/2016 reveals no growth. Chest x-ray obtained on 12/30/2016 reveals no acute radiographic findings of the chest. Chest and abdominal CTA obtained on 12/31/[address] evidence of acute or chronic pulmonary emboli. No evidence of infiltrate. Cardiolite stress test obtained on 01/04/2017 reveals no reversible ischemia. EKG obtained on 12/30/2016 reveals sinus tachycardia with evidence of PVCs and left ventricular hypertrophy. EKG obtained on 12/30/2016 reveals sinus rhythm. Echocardiogram obtained on 12/31/2016 reveals a grade 2/4 diastolic dysfunction with no overt evidence of valvular disease. Normal EF. EKG obtained on 01/01/2017 reveals sinus rhythm. PHYSICAL EXAMINATION: GENERAL: On examination, the patient is a well-developed, well-nourished, 62-year-old female who is awake, alert, and oriented to person, place, time, and situation. She is verbal, conversational, and does not appear to be in any acute distress. VITAL SIGNS: Temperature 97.3, pulse 70, respirations 18, blood pressure 141/76, oxygen saturation is 91% on 2 L nasal cannula. SKIN: Warm and dry. No rash. She is not diaphoretic. HEENT: Pupils equal, round, reactive to light and accommodation. Conjunctivae are pink. No JVP. CARDIOVASCULAR: Heart is regular with no murmur or rub. CHEST: Diminished but symmetrical and unlabored. ABDOMEN: Soft, nontender, nondistended. BACK: No CVA tenderness or sacral edema. EXTREMITIES: No clubbing, cyanosis, or edema. PSYCHIATRIC: Appropriate affect. Pleasant mood. HISTORY OF PRESENT ILLNESS: The patient is a 62-year-old female with a past medical history of tobacco dependency, equating about 58 pack years. The patient presented to the emergency department with a chief complaint of dyspnea. The patient reported a 4-day history of postnasal drip as well as sore throat. The patient stated she used a home remedy of eating pickles because she hates going to the doctor. The patient reported that she had ever increasing shortness of breath after that, especially lower extremity edema, orthopnea, dyspnea with exertion, and subjective fevers and chills. The patient also noted a white sputum production during that time. The patient stated that she noticed wheezing as well. Given the patient's persistence of symptoms, she came to the emergency department for evaluation. Upon presentation to the emergency department, the patient was found to have oxygen saturation in the 80s and with significant evidence of respiratory failure, and the patient was referred to the hospitalist for admission and management. HOSPITAL COURSE: The patient was admitted to [facility]. The patient initially was BiPAP dependent and with steroids and nebulizers as well as antibiotics for bronchitis, the patient's symptoms improved slowly and the patient was able to be weaned from BiPAP; however, she has been unable to tolerate being off oxygen and is now oxygen dependent. This has been arranged with home health and the patient will be discharged on 2 L via nasal cannula. During the patient's stay, troponin as obtained which was suggestive of somewhat of a leak. The patient's troponin trended up to 0.5. Subsequently this patient was seen by Cardiology and underwent an echocardiogram which only revealed some diastolic dysfunction; however, given the patient's troponin bump she underwent Cardiolite stress test and findings were consistent with no reversible ischemia. [place] the patient's troponin leak was due to hypoxia, which is reasonable. The patient has received much education and is advised to followup with her primary care provider for further medication management. DISCHARGE PLANNING: The patient is to followup with her primary care provider within 1-2 weeks for hospital followup. The patient has been started on a great deal of new medications, especially a statin which will need a followup of LFTs as well as blood pressure medications will need to be followed up on. The patient also has nodule findings on CTA. See the first part of the report that will need to be followed up as recommended. Time spent on this discharge including assessment, plan, physical examination, patient education, and review of previous and current medical records is 40 minutes. DICTATING PHYSICIAN: MYA EVANS NP [id number] PHY#: [id number] ID: [id number] JOB#: [id number] ACCT: [id number] cc:MYA EVANS NP, CECILIA M.D. >
--- NOTE | 2017-01-05 09:49 | PROGRESS NOTE E ---
Progress Note NAME: ROMÁN ORTIZ : 1955 AGE: 61Y DATE: 01/04/2017 ROOM: 324 SUBJECTIVE: The patient is doing much better. She says that she is not short of breath at rest. There is no PND or orthopnea. The patient remains in sinus rhythm. There is no leg edema. There is no TIA or CVA symptoms. The patient denies any chest pain or discomfort. The patient had a repeat troponin I which was 0.024, and hence, within a normal range. The patient underwent a Cardiolite stress test without any complications. OBJECTIVE: On examination, the patient is moderately obese but well groomed, at present in no acute distress. VITAL SIGNS: Afebrile with a temperature of 97.3 degrees Fahrenheit, pulse is 70 beats per minute, blood pressure is 141/76, respirations are 18 per minute, O2 sats are 97% on 2L nasal cannula. HEAD: Atraumatic, normocephalic. EYES: Pupils are equal, round, and regular, reactive to light and accommodation. Extraocular movements are normal. There is no conjunctival pallor. There is no scleral icterus. ENT: Negative. NECK: Supple. There is no JVD. Carotids are equal. There is no bruit. There is no goiter. Trachea is central. LUNGS: Diminished air entry and prolonged expiration without any rhonchi, rales, or wheezing. CHEST: S1 and S2 are heard. There is no S3 gallop. There is no S4 gallop. There is a systolic murmur in the left sternal border and the apex. There is no rub. ABDOMEN: Soft, slightly obese, nontender. There is no hepatosplenomegaly. Bowel sounds are well heard. There are no tender areas or masses. EXTREMITIES: Femorals are slightly diminished. There is no femoral bruits. Leg pulses are well heard. There is no pedal edema. There is no DVT or cellulitis. There is no cyanosis or clubbing. There is no calf tenderness. EDUCATION REPORTER: The patient is conscious, awake, alert, oriented x3, with no focal deficit. PSYCHIATRIC: Judgement and insight are intact. Affect is normal. As mentioned earlier, the patient's CPK-MB was negative at 1.91, and her troponin I was 0.024. Patient was . ASSESSMENT: PLAN: NOTE: Thirty minutes were spent on this patient, discussing the findings of the stress test with the patient and also with the nurse. Medications were reviewed. Medical decision making was of high complexity in view of the patient's case with dramatic elevation of troponin I which has now come down, and also discussed the stress test with the patient. DICTATING PHYSICIAN: MARC HELTON M.D. [id number] PHY#: [id number] ID: [id number] JOB#: [id number] ACCT: [id number] cc: >
--- NOTE | 2017-01-05 19:12 | DRAGON STRESS TEST REPORT ---
Intravenous Lexiscan Cardiolite stress test using single photon emmision computerized tomography. Date of procedure: 01/04/2017. Ordering Provider: Dr. Berrios. Patient's status: In Patient. Indication: . Patient with shortness of breath and positive troponin. Coronary risk factors: Age, and hypertension. Resting EKG: Sinus Rhythm. Within normal limits. Stress EKG: No changes of ischemia. The patient had no chest pain or discomfort, and no arrhythmias seen Reason for termination: Protocol. Conclusions: Normal EKG and hemodynamic response to IV Lexiscan. Nuclear data: At rest the patient was given 14.31 millicuries of technetium 99m sestamibi injected intravenously. As per protocol rest non gated SPECT images were obtained. Subsequently the patient was given intravenous Lexiscan at a dose of 0.4 mg in 5 mL intravenously, followed by flush with normal saline. Subsequently the stress dose of 43.1 millicuries of technetium 99m sestamibi was injected intravenously. As per protocol stress gated images were obtained. Nuclear interpretation: Review of images showed this is a poor quality study, and difficulty interpret.. But in spite of this all segments of the myocardium had normal perfusion at rest, and normal perfusion post stress with IV Lexiscan. All segments of the myocardium had normal motion, contraction, and thickening by gated study. Computed read T. I D. ratio was abnormal at 1.32. . Computer read rest, and stress left ventricular ejection fraction were 58 %, and 61 %, respectively. Conclusion: 1. There is no scintigraphic evidence of Lexiscan induced myocardial ischemia. 2. There is no scintigraphic evidence of myocardial infarction/scar. Recommendations: Aggressive risk factor modification, and treating the underlying co- morbidities. MTDD
== END 2017-01-04 17:26 | disposition home or self-care (01) | DRG 190 ==
LOC: ER 17:38 → EH 21:19 → 3W 12-31 00:17
PROVIDERS: ADMIT Family Medicine; ATTEND Family Medicine
PROC: 5A09457 Assistance with Respiratory Ventilation, 24-96 Consecutive Hours, Continuous Positive Airway Pressure (ICD-10-PCS; principal; 2016-12-30)
PROC: 3E0F73Z Introduction of Anti-inflammatory into Respiratory Tract, Via Natural or Artificial Opening (ICD-10-PCS; 2016-12-31)
PROC: 3E0234Z Introduction of Serum, Toxoid and Vaccine into Muscle, Percutaneous Approach (ICD-10-PCS; 2017-01-04)
DX: J44.0 Chronic obstructive pulmonary disease with (acute) lower respiratory infection (principal); J96.21 Acute and chronic respiratory failure with hypoxia; J20.9 Acute bronchitis, unspecified; J44.1 Chronic obstructive pulmonary disease with (acute) exacerbation; I10 Essential (primary) hypertension; R74.8 Abnormal levels of other serum enzymes; E04.1 Nontoxic single thyroid nodule; K76.89 Other specified diseases of liver; E66.9 Obesity, unspecified; Z68.33 Body mass index [BMI] 33.0-33.9, adult; R00.0 Tachycardia, unspecified; I49.3 Ventricular premature depolarization; I51.7 Cardiomegaly; F17.210 Nicotine dependence, cigarettes, uncomplicated; Z23 Encounter for immunization; Z99.81 Dependence on supplemental oxygen; Z79.899 Other long term (current) drug therapy
CPT/HCPCS: 36415; 71010; 71275; 78452; 80048; 80053; 80061; 81001; 82550; 82553; 82803; 83605; 83735; 83880; 84484; 85025; 87040; 87070; 87086; 87205; 90686; 93005; 93010; 93017; 93306; 94640; 94660; 94667; 94799; 96374; 99291; A9500; J0360; J0696; J1650; J1940; J2785; J2920; J2930; J3475; J3490; J7030; J7620; Q9969

== ENCOUNTER → 2017-04-08 | Outpatient (CLI) | payer OTHER ==
--- NOTE | 2017-04-09 13:39 | RADIOLOGY REPORT (SQ) ---
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 Orally administered ADDITIONAL DRUGS AND DOSES: None. TECHNIQUE: Iodine uptake was measured at 4 and 24 hours. Images of the neck were acquired. LIMITATIONS: None. FINDINGS: 4 HOUR UPTAKE RADIO-IODINE: 9.2%. Normal Range of 5-20% [facility] Normal Range of 5-15% [facility] Normal Range of 5-15% [facility] 24 HOUR UPTAKE RADIO-IODINE: 24.3%. Normal Range of 7-35% [facility] Normal Range of 8-35% [facility] Normal Range of 15-30% [facility] SCAN: Small bare area over the lateral aspect left lower pole thyroid. This correlates with a partia lly calcified cystic and solid [address] chest 12/31/2016, coronal image 49. Remainder of t he thyroid activity is otherwise unremarkable OTHER: No other significant finding. IMPRESSION: Normal 4 hour and 24 hour radio iodine uptake Small cold nodule over the left lower pole thyroid gland laterally, correlates with complex cystic no dule on chest CT 12/31/2016 NORMAL UPTAKE OF IODINE. TECHNICAL DOCUMENTATION: JOB ID: [id number] [employer]- All Rights Reserved Reading location - IP/workstation name: [email or web address]
== END ==
LOC: RAD 08:39
PROVIDERS: ATTEND Physician Assistant
DX: E04.1 Nontoxic single thyroid nodule (principal)
CPT/HCPCS: 78014; A9516